=== PATIENT | female | born 1950 | race Caucasian/White ===

== ENCOUNTER 2021-09-30 15:50 | Emergency (ER) | payer MEDICARE ==
[~2021-09-30] VITALS: Ht 160 cm; Wt 100.0 kg
[2021-09-30 16:49] VITALS: BP 168/92
[2021-10-01] MEDS ORDERED: CHLO25TA10 PO (10:58)
[2021-10-01] MEDS ORDERED: CITA40TA17 PO (10:58)
[2021-10-01] MEDS ORDERED: BUSP10TA3 PO (10:58)
[2021-10-01] MEDS ORDERED: POTA10CA44 PO (10:58)
[2021-10-01] MEDS ORDERED: METO-384 PO (10:58)
[2021-10-01] MEDS ORDERED: PIOG30TA71 PO (10:58)
[2021-10-01] MEDS ORDERED: ATOR40TA72 PO (10:58)
[2021-10-02] MEDS ORDERED: DEC4T PO (11:52)
[2021-10-02] MEDS ORDERED: CIPR-202 PO (14:02)
== END 2021-09-30 18:55 | disposition left against medical advice (07) ==
LOC: ER 15:50
DX: U07.1 COVID-19 (principal); E11.9 Type 2 diabetes mellitus without complications; Z86.73 Personal history of transient ischemic attack (TIA), and cerebral infarction without residual deficits; Z88.0 Allergy status to penicillin; Z88.2 Allergy status to sulfonamides
CPT/HCPCS: 99281

== ENCOUNTER 2021-10-03 09:11 | Emergency (ER) | payer MEDICARE ==
[~2021-10-03] VITALS: Ht 160 cm; Wt 99.0 kg
[2021-10-03 09:11] VITALS: BP 170/84
[~2021-10-03 09:11] MED LIST: ATOR40TA72 PO; BUSP10TA3 PO; CIPR-202 PO; CITA40TA17 PO; DEC4T PO; METO-384 PO; PIOG30TA71 PO; POTA10CA44 PO
--- NOTE | 2021-10-03 09:24 | NUR ---
Pt has a strong cough. States that she is weak. Calls out, "Help me."
[2021-10-03] MEDS ORDERED: ondansetron/PF 4mg/2ml inj IV ONE (09:45)
[2021-10-03] MEDS ORDERED: normal saline 1000ML IV soln IVB ONE (09:45)
--- NOTE | 2021-10-03 10:09 | NUR ---
PT IS SCREAMING "DONT LEAVE, HELP ME", EVERY TIME I TRY TO WALK OUT OF THE ROOM. PT WILL NOT ALLOW ME TO TREAST HER SHE CONT TO CLIMB OUT OF BED STATING "I WILL LEAVE IF YOU DONT MOVE ME TO A DIFFERENT BED". i EXPLAINED THIS IS HER ROOM AND IM TRYING TO PROVIDE HER WITH HER MEDICAL TREATMENT. PT CONT TO SAY HELP ME. PT WONT TELL ME WHAT IS WRONG OTHER THAN SAYING "IM SICK".
[2021-10-03] MEDS ORDERED: acetaminophen 325mg tablet PO ONE (10:40)
[2021-10-03] MEDS ORDERED: LORazepam 2 mg/ml vial IV ONE (10:40)
[2021-10-03 10:49] LABS: BASOPHILS % (AUTO) 0.2 % (0-1); EOSINOPHILS % (AUTO) 0 % (0-6); HEMATOCRIT 41.1 % (35.0-45.0); HEMOGLOBIN 13.9 g/dl (12.0-16.0); LYMPHOCYTES # (AUTO) 1.6 X10'3 (1.1-4.8); LYMPHOCYTES % (AUTO) 35.9 % (21-51); MEAN CORPUSCULAR HEMOGLOBIN 28.6 PG (27.0-31.0); MEAN CORPUSCULAR HGB CONC 33.7 g/dL (33.0-36.5); MEAN CORPUSCULAR VOLUME 84.9 FL (78-98); MEAN PLATELET VOLUME 9.4 FL (7.4-10.4); MONOCYTES # (AUTO) 0.8 X10'3 (0-0.9); MONOCYTES % (AUTO) 16.8 % (2-12); NEUTROPHILS # (AUTO) 2.2 X10'3 (1.8-7.7); NEUTROPHILS % (AUTO) 47.1 % (42-75); PLATELET COUNT 180 X10'3 (140-440); RED BLOOD COUNT 4.85 X10'6 (4.20-5.60); RED CELL DISTRIBUTION WIDTH 14.6 % (11.5-14.5); WHITE BLOOD COUNT 4.6 X10'3 (4.5-11.0)
--- NOTE | 2021-10-03 10:58 | NUR ---
[place] ([facility])- [phone]
[2021-10-03 11:02] LABS: ALANINE AMINOTRANSFERASE 29 U/L (12-78); ALBUMIN 3.9 G/DL (3.4-5.0); ALKALINE PHOSPHATASE 57 IU/L (46-116); ANION GAP 12 (8-16); ASPARTATE AMINO TRANSFERASE 23 U/L (10-37); BLOOD UREA NITROGEN 16 MG/DL (7-18); BUN/CREATININE RATIO 16.5 (6.6-38.0); CALCIUM 9.9 MG/DL (8.5-10.1); CHLORIDE 98 MMOL/L (99-107); CREATININE 0.97 MG/DL (0.40-0.90); GLUCOSE 159 MG/DL (70-104); POTASSIUM 3.6 MMOL/L (3.5-5.1); SODIUM 133 MMOL/L (135-145); TOTAL CARBON DIOXIDE 22.6 MMOL/L (24-32); eGFR 56 ML/MIN
[2021-10-05] MEDS ORDERED: ONDA4TAB12 PO ×2 (17:58)
[2021-10-12] MEDS ORDERED: OMEP20CA15 PO (12:36)
[2021-10-12] MEDS ORDERED: CHLO25TA10 PO (12:36)
[2021-10-12] MEDS ORDERED: IBUP-1984 PO (12:37)
== END 2021-10-03 16:43 | disposition home or self-care (01) ==
LOC: ER 09:11
DX: U07.1 COVID-19 (principal); R50.9 Fever, unspecified; F41.9 Anxiety disorder, unspecified; I10 Essential (primary) hypertension; E11.9 Type 2 diabetes mellitus without complications; Z86.73 Personal history of transient ischemic attack (TIA), and cerebral infarction without residual deficits; Z90.710 Acquired absence of both cervix and uterus; Z88.0 Allergy status to penicillin; Z88.2 Allergy status to sulfonamides; Z79.899 Other long term (current) drug therapy; Z79.2 Long term (current) use of antibiotics
CPT/HCPCS: 36415; 71045; 80053; 85025; 93005; 96361; 96374; 96375; 99285; J2060; J2405; J7030

== ENCOUNTER 2021-10-04 07:33 | Emergency (ER) | payer MEDICARE ==
[~2021-10-04] VITALS: Ht 160 cm; Wt 100.0 kg
[2021-10-04 07:35] VITALS: BP 170/78
[2021-10-04] MEDS ORDERED: LORazepam 1 MG tablet PO ONE (08:00)
[2021-10-04] MEDS ORDERED: ondansetron 4mg rapidly disintigrating tab PO ONE (08:00)
[2021-10-04] MEDS ORDERED: acetaminophen 325mg tablet PO ONE (08:00)
[2021-10-05] MEDS ORDERED: ONDA4TAB12 PO (17:58)
== END 2021-10-04 10:22 | disposition home or self-care (01) ==
LOC: ER 07:33
DX: U07.1 COVID-19 (principal); I10 Essential (primary) hypertension; E11.9 Type 2 diabetes mellitus without complications; Z86.73 Personal history of transient ischemic attack (TIA), and cerebral infarction without residual deficits; Z79.2 Long term (current) use of antibiotics; Z79.899 Other long term (current) drug therapy; Z90.710 Acquired absence of both cervix and uterus; Z88.0 Allergy status to penicillin; Z88.2 Allergy status to sulfonamides
CPT/HCPCS: 99284

== ENCOUNTER 2021-10-05 16:47 | Emergency (ER) | payer MEDICARE ==
[~2021-10-05] VITALS: Ht 162.6 cm; Wt 100.0 kg
[2021-10-05 17:04] VITALS: BP 144/75
--- NOTE | 2021-10-05 17:56 | NUR ---
spoke with Kamran-son states, "she has high anxiety and needs to be treated for it. I dont think she takes anything for anxiety." informed Kamran needs to f/u with her primary doctor.
[2021-10-05] MEDS ORDERED: ONDA4TAB12 PO (17:58)
== END 2021-10-05 18:14 | disposition home or self-care (01) ==
LOC: ER 16:48
DX: U07.1 COVID-19 (principal); R05.9 Cough, unspecified; I10 Essential (primary) hypertension; E11.9 Type 2 diabetes mellitus without complications; Z86.73 Personal history of transient ischemic attack (TIA), and cerebral infarction without residual deficits; Z90.710 Acquired absence of both cervix and uterus; Z88.0 Allergy status to penicillin; Z88.2 Allergy status to sulfonamides; Z79.2 Long term (current) use of antibiotics; Z79.899 Other long term (current) drug therapy
CPT/HCPCS: 99283

== ENCOUNTER 2021-10-06 07:41 | Emergency (ER) | payer MEDICARE ==
[~2021-10-06] VITALS: Ht 160 cm; Wt 90.9 kg
[~2021-10-06 07:41] MED LIST changes: +ONDA4TAB12 PO
[2021-10-06 07:54] VITALS: BP 163/88
--- NOTE | 2021-10-06 08:31 | NUR ---
PT SEEN OUT WALKING AROUND IN THE RAP AREA AND INTO THE PARKING LOT. APPROACHED PT AND HAD HER RETURN TO HER CHAIR AND STATES "MY CHEST HURTS. I'M SCARED." ELENITA WILLIAMSON MADE AWARE AND EKG ORDERED. PT THEN BANGING ON THE AMBULANCE DOORS YELLING "HELP. I'M SCARED." WENT BACK OUT AND REDIRECTED PT BACK TO CHAIR. PT DIFFICULT TO REDIRECT AND IS NOT COMPLIANT WITH STAYING IN HER DESIGNATED CHAIR SHE IS COVID POSITIVE.
== END 2021-10-06 09:10 | disposition home or self-care (01) ==
LOC: ER 07:41
DX: F41.9 Anxiety disorder, unspecified (principal); I10 Essential (primary) hypertension; E11.9 Type 2 diabetes mellitus without complications; Z90.710 Acquired absence of both cervix and uterus; Z86.73 Personal history of transient ischemic attack (TIA), and cerebral infarction without residual deficits; Z88.0 Allergy status to penicillin; Z88.2 Allergy status to sulfonamides; Z79.2 Long term (current) use of antibiotics; Z79.899 Other long term (current) drug therapy; Z86.16 Personal history of COVID-19
CPT/HCPCS: 93005; 99283

== ENCOUNTER 2021-10-08 01:02 | Emergency (ER) | payer MEDICARE ==
[~2021-10-08] VITALS: Ht 160 cm; Wt 100.0 kg
[2021-10-08 01:54] LABS: BASOPHILS % (AUTO) 0.2 % (0-1); EOSINOPHILS % (AUTO) 0.2 % (0-6); HEMOGLOBIN 13.7 g/dl (12.0-16.0); LYMPHOCYTES # (AUTO) 1.2 X10'3 (1.1-4.8); LYMPHOCYTES % (AUTO) 28.9 % (21-51); MEAN CORPUSCULAR HEMOGLOBIN 28.8 PG (27.0-31.0); MEAN CORPUSCULAR HGB CONC 35.2 g/dL (33.0-36.5); MEAN CORPUSCULAR VOLUME 81.9 FL (78-98); MEAN PLATELET VOLUME 8.5 FL (7.4-10.4); MONOCYTES # (AUTO) 1.3 X10'3 (0-0.9); NEUTROPHILS # (AUTO) 1.8 X10'3 (1.8-7.7); NEUTROPHILS % (AUTO) 41.7 % (42-75); PLATELET COUNT 208 X10'3 (140-440); RED BLOOD COUNT 4.76 X10'6 (4.20-5.60); RED CELL DISTRIBUTION WIDTH 14.3 % (11.5-14.5); WHITE BLOOD COUNT 4.3 X10'3 (4.5-11.0)
[2021-10-08 02:19] LABS: ALANINE AMINOTRANSFERASE 39 U/L (12-78); ALBUMIN 3.8 G/DL (3.4-5.0); ALKALINE PHOSPHATASE 72 IU/L (46-116); ANION GAP 11 (8-16); ASPARTATE AMINO TRANSFERASE 27 U/L (10-37); BILIRUBIN,TOTAL 1.1 MG/DL (0.1-1.0); BLOOD UREA NITROGEN 11 MG/DL (7-18); BUN/CREATININE RATIO 14.7 (6.6-38.0); CALCIUM 9.5 MG/DL (8.5-10.1); CHLORIDE 91 MMOL/L (99-107); CREATININE 0.75 MG/DL (0.40-0.90); GLUCOSE 129 MG/DL (70-104); SODIUM 129 MMOL/L (135-145); TOTAL PROTEIN 7.8 G/DL (6.4-8.2); eGFR 76 ML/MIN
[2021-10-08 02:31] LABS: POTASSIUM 2.7 MMOL/L (3.5-5.1)
[2021-10-08] MEDS ORDERED: potassium Cl 20 mEq SR tablet PO STA (03:12)
[2021-10-08] MEDS ORDERED: LORazepam 1 MG tablet PO ONE (03:15)
[2021-10-08 03:18] LABS: D-DIMER 0.28 MG/L FEU (0-0.50)
[2021-10-08 04:20] LABS: PLATELET ESTIMATE NORMAL; TOTAL CELLS COUNTED 100
[2021-10-08] MEDS ORDERED: sulfamethoxazole/trimethoprim DS (800/160mg) tablet PO STA (04:54)
[2021-10-08] MEDS ORDERED: SULF1TAB49 PO (04:55)
--- NOTE | 2021-10-08 05:09 | NUR ---
called cab, 45min eta
[2021-10-08 05:50] VITALS: BP 112/78
[2021-10-12] MEDS ORDERED: CHLO25TA10 PO (12:36)
[2021-10-12] MEDS ORDERED: OMEP20CA15 PO (12:36)
[2021-10-12] MEDS ORDERED: IBUP-1984 PO (12:37)
[2021-10-15] MEDS ORDERED: DOXY100C2 PO (10:47)
== END 2021-10-08 06:25 | disposition home or self-care (01) ==
LOC: ER 01:03
DX: U07.1 COVID-19 (principal); F41.9 Anxiety disorder, unspecified; I10 Essential (primary) hypertension; E11.9 Type 2 diabetes mellitus without complications; Z86.72 Personal history of thrombophlebitis; Z88.0 Allergy status to penicillin; Z88.2 Allergy status to sulfonamides; Z79.2 Long term (current) use of antibiotics; Z79.899 Other long term (current) drug therapy; Z90.710 Acquired absence of both cervix and uterus
CPT/HCPCS: 36415; 71045; 80053; 83880; 84484; 85007; 85025; 85379; 93005; 99285

== ENCOUNTER 2021-11-28 02:10 | Emergency (ER) | payer MEDICARE ==
[~2021-11-28] VITALS: Ht 160 cm; Wt 102.3 kg
[~2021-11-28 02:10] MED LIST changes: +ARIP5TAB60 PO; +ATOR20TA66 PO; -ATOR40TA72 PO; +BUSP10TA10 PO; -BUSP10TA3 PO; -CIPR-202 PO; -CITA40TA17 PO; +CITA40TA22 PO; -DEC4T PO; +DOCU100C40 PO; +DONE5TAB7 PO; +IBUP-1984 PO; -ONDA4TAB12 PO; +PANT40TA54 PO
[2021-11-28] MEDS ORDERED: ondansetron/PF 4mg/2ml inj IV ONE (03:55)
[2021-11-28] MEDS ORDERED: morphine 4 MG/ML inj SYRINge IV ONE (03:55)
[2021-11-28 04:29] LABS: BASOPHILS % (AUTO) 1.1 % (0-1); EOSINOPHILS # (AUTO) 0.1 X10'3 (0-0.9); EOSINOPHILS % (AUTO) 1.3 % (0-6); HEMATOCRIT 34.6 % (35.0-45.0); HEMOGLOBIN 11.5 g/dl (12.0-16.0); LYMPHOCYTES # (AUTO) 1.7 X10'3 (1.1-4.8); LYMPHOCYTES % (AUTO) 43.6 % (21-51); MEAN CORPUSCULAR HEMOGLOBIN 28.5 PG (27.0-31.0); MEAN CORPUSCULAR HGB CONC 33.1 g/dL (33.0-36.5); MEAN PLATELET VOLUME 10.2 FL (7.4-10.4); MONOCYTES # (AUTO) 0.5 X10'3 (0-0.9); MONOCYTES % (AUTO) 12.8 % (2-12); NEUTROPHILS # (AUTO) 1.6 X10'3 (1.8-7.7); NEUTROPHILS % (AUTO) 41.2 % (42-75); PLATELET COUNT 172 X10'3 (140-440); RED BLOOD COUNT 4.02 X10'6 (4.20-5.60); RED CELL DISTRIBUTION WIDTH 15.5 % (11.5-14.5); WHITE BLOOD COUNT 3.8 X10'3 (4.5-11.0)
[2021-11-28] MEDS ORDERED: acetaminophen 325mg tablet PO ONE (05:05)
[2021-11-28 05:15] LABS: ALANINE AMINOTRANSFERASE 28 U/L (12-78); ALBUMIN 3.6 G/DL (3.4-5.0); ALKALINE PHOSPHATASE 53 IU/L (46-116); ANION GAP 14 (8-16); ASPARTATE AMINO TRANSFERASE 15 U/L (10-37); BILIRUBIN,TOTAL 0.5 MG/DL (0.1-1.0); BLOOD UREA NITROGEN 9 MG/DL (7-18); BUN/CREATININE RATIO 10.3 (6.6-38.0); CALCIUM 10.3 MG/DL (8.5-10.1); CHLORIDE 100 MMOL/L (99-107); CREATININE 0.87 MG/DL (0.40-0.90); GLUCOSE 135 MG/DL (70-104); POTASSIUM 3.3 MMOL/L (3.5-5.1); SODIUM 141 MMOL/L (135-145); TOTAL CARBON DIOXIDE 27.1 MMOL/L (24-32); TOTAL PROTEIN 7.1 G/DL (6.4-8.2); eGFR 64 ML/MIN
[2021-11-28] MEDS ORDERED: sucralfate 1 gm tablet PO ONE (05:20)
[2021-11-28] MEDS ORDERED: GABA300C PO (05:48)
[2021-11-28 06:08] VITALS: BP 142/72
== END 2021-11-28 06:11 | disposition home or self-care (01) ==
LOC: ER 02:10
DX: M25.552 Pain in left hip (principal); M54.32 Sciatica, left side; R42 Dizziness and giddiness; E78.00 Pure hypercholesterolemia, unspecified; I10 Essential (primary) hypertension; E11.9 Type 2 diabetes mellitus without complications; Z86.73 Personal history of transient ischemic attack (TIA), and cerebral infarction without residual deficits; Z90.710 Acquired absence of both cervix and uterus; Z88.0 Allergy status to penicillin; Z88.2 Allergy status to sulfonamides; Z79.899 Other long term (current) drug therapy
CPT/HCPCS: 36415; 71045; 73502; 80053; 85025; 93005; 96374; 96375; 99285; J2270; J2405

== ENCOUNTER 2021-11-30 13:40 | Emergency (ER) | payer MEDICARE ==
[~2021-11-30] VITALS: Ht 160 cm; Wt 102.3 kg
[~2021-11-30 13:40] MED LIST changes: +GABA300C PO
[2021-11-30 13:53] VITALS: BP 185/83
== END 2021-11-30 19:59 | disposition left against medical advice (07) ==
LOC: ER 13:40
DX: K62.5 Hemorrhage of anus and rectum (principal); Z53.21 Procedure and treatment not carried out due to patient leaving prior to being seen by health care provider

== ENCOUNTER 2021-12-01 04:41 | Emergency (ER) | payer MEDICARE ==
[~2021-12-01] VITALS: Ht 157.5 cm; Wt 102.3 kg
[2021-12-01] MEDS ORDERED: diazepam 5mg tablet PO ONE (05:10)
[2021-12-01 05:32] LABS: BASOPHILS % (AUTO) 0.4 % (0-1); EOSINOPHILS # (AUTO) 0.1 X10'3 (0-0.9); EOSINOPHILS % (AUTO) 1.7 % (0-6); HEMATOCRIT 37.3 % (35.0-45.0); HEMOGLOBIN 12.5 g/dl (12.0-16.0); LYMPHOCYTES # (AUTO) 1.5 X10'3 (1.1-4.8); LYMPHOCYTES % (AUTO) 35.3 % (21-51); MEAN CORPUSCULAR HEMOGLOBIN 28.8 PG (27.0-31.0); MEAN CORPUSCULAR HGB CONC 33.6 g/dL (33.0-36.5); MEAN CORPUSCULAR VOLUME 85.7 FL (78-98); MEAN PLATELET VOLUME 10.2 FL (7.4-10.4); MONOCYTES # (AUTO) 0.5 X10'3 (0-0.9); MONOCYTES % (AUTO) 12.6 % (2-12); NEUTROPHILS # (AUTO) 2.1 X10'3 (1.8-7.7); PLATELET COUNT 218 X10'3 (140-440); RED BLOOD COUNT 4.35 X10'6 (4.20-5.60); RED CELL DISTRIBUTION WIDTH 15.7 % (11.5-14.5); WHITE BLOOD COUNT 4.3 X10'3 (4.5-11.0)
[2021-12-01 05:47] LABS: ALANINE AMINOTRANSFERASE 43 U/L (12-78); ALBUMIN 3.9 G/DL (3.4-5.0); ALKALINE PHOSPHATASE 67 IU/L (46-116); ANION GAP 13 (8-16); BILIRUBIN,TOTAL 0.7 MG/DL (0.1-1.0); BLOOD UREA NITROGEN 7 MG/DL (7-18); BUN/CREATININE RATIO 9.5 (6.6-38.0); CALCIUM 10.5 MG/DL (8.5-10.1); CHLORIDE 99 MMOL/L (99-107); CREATININE 0.74 MG/DL (0.40-0.90); GLUCOSE 136 MG/DL (70-104); SODIUM 139 MMOL/L (135-145); TOTAL CARBON DIOXIDE 26.9 MMOL/L (24-32); TOTAL PROTEIN 7.8 G/DL (6.4-8.2); eGFR 77 ML/MIN
[2021-12-01 05:50] LABS: ASPARTATE AMINO TRANSFERASE 45 U/L (10-37)
[2021-12-01] MEDS ORDERED: fentaNYL/PF 50MCG/1 ML 2ML syringe IV ONE (06:45)
--- NOTE | 2021-12-01 07:40 | NUR ---
MRI screen form filled out and faxed to MRI.
[2021-12-01 07:57] LABS: CLARITY,URINE CLEAR (Clear); COLOR,URINE YELLOW (Yellow); GLUCOSE, URINE NEGATIVE (Neg); KETONES,URINE NEGATIVE (Neg); LEUKOCYTE ESTERASE ,URINE NEGATIVE (Neg); NITRITES, URINE NEGATIVE (Neg); OCCULT BLOOD,URINE NEGATIVE (Neg); PROTEIN,URINE NEGATIVE (Neg); UROBILINOGEN,URINE 0.2 E.U/dL (0.2-1.0)
[2021-12-01 08:15] LABS: UA COLLECTION TYPE OTHER
--- NOTE | 2021-12-01 08:30 | NUR ---
Sent page to MRI, informed pt paperwork faxed and awaiting status.
--- NOTE | 2021-12-01 09:26 | NUR ---
Pt reports she feels like her blood surgar is low, glucose taken with result 119. Received VO may give pt something to eat and drink from Dr. Damon and pt now eating some yogurt, string cheese, jello and juice.
[2021-12-01] MEDS ORDERED: cloNIDine 0.1 mg tablet PO ONE (09:55)
--- NOTE | 2021-12-01 12:00 | NUR ---
Pt in hospital gown and being taken to MRI.
[2021-12-01 13:50] VITALS: BP 163/102
== END 2021-12-01 14:28 | disposition home or self-care (01) ==
LOC: ER 04:41
DX: M54.42 Lumbago with sciatica, left side (principal); E78.00 Pure hypercholesterolemia, unspecified; I10 Essential (primary) hypertension; E11.9 Type 2 diabetes mellitus without complications; F41.9 Anxiety disorder, unspecified; F32.A Depression, unspecified; Z86.73 Personal history of transient ischemic attack (TIA), and cerebral infarction without residual deficits; Z90.710 Acquired absence of both cervix and uterus; Z88.0 Allergy status to penicillin; Z88.2 Allergy status to sulfonamides; Z79.899 Other long term (current) drug therapy
CPT/HCPCS: 36415; 72146; 72148; 80053; 81003; 82948; 85025; 96374; 99285; J3010

== ENCOUNTER 2021-12-02 05:03 | Emergency (ER) | payer MEDICARE ==
[~2021-12-02] VITALS: Ht 157.5 cm; Wt 102.3 kg
[2021-12-02 05:05] VITALS: BP 127/80
[2021-12-02] MEDS: triamcinolone acetonide 40mg/ml inj IM ONE (05:19)
[2021-12-02] MEDS: HYDROcodone/acetaminophen 10/325mg tab PO ONE (05:38)
== END 2021-12-02 05:41 | disposition home or self-care (01) ==
LOC: ER 05:04
DX: M54.42 Lumbago with sciatica, left side (principal); E78.00 Pure hypercholesterolemia, unspecified; I10 Essential (primary) hypertension; E11.9 Type 2 diabetes mellitus without complications; F41.9 Anxiety disorder, unspecified; F32.A Depression, unspecified; Z86.73 Personal history of transient ischemic attack (TIA), and cerebral infarction without residual deficits; Z90.710 Acquired absence of both cervix and uterus; Z88.0 Allergy status to penicillin; Z88.2 Allergy status to sulfonamides; Z79.899 Other long term (current) drug therapy
CPT/HCPCS: 96372; 99283; J3301

== ENCOUNTER 2021-12-10 09:20 | Inpatient (IN) | payer MEDICARE ==
[~2021-12-10] VITALS: Ht 162.6 cm; Wt 93.5 kg
[2021-12-10 11:07] LABS: BASOPHILS % (AUTO) 0.3 % (0-1); EOSINOPHILS % (AUTO) 0.7 % (0-6); HEMATOCRIT 39.2 % (35.0-45.0); HEMOGLOBIN 12.8 g/dl (12.0-16.0); LYMPHOCYTES % (AUTO) 26.9 % (21-51); MEAN CORPUSCULAR HEMOGLOBIN 28.2 PG (27.0-31.0); MEAN CORPUSCULAR HGB CONC 32.7 g/dL (33.0-36.5); MEAN CORPUSCULAR VOLUME 86.3 FL (78-98); MEAN PLATELET VOLUME 9.4 FL (7.4-10.4); MONOCYTES # (AUTO) 0.4 X10'3 (0-0.9); NEUTROPHILS # (AUTO) 2.2 X10'3 (1.8-7.7); NEUTROPHILS % (AUTO) 61.1 % (42-75); PLATELET COUNT 211 X10'3 (140-440); RED BLOOD COUNT 4.54 X10'6 (4.20-5.60); RED CELL DISTRIBUTION WIDTH 15.3 % (11.5-14.5); WHITE BLOOD COUNT 3.6 X10'3 (4.5-11.0)
[2021-12-10 11:22] LABS: ALANINE AMINOTRANSFERASE 26 U/L (12-78); ALKALINE PHOSPHATASE 69 IU/L (46-116); ANION GAP 12 (8-16); ASPARTATE AMINO TRANSFERASE 15 U/L (10-37); BILIRUBIN,TOTAL 0.3 MG/DL (0.1-1.0); BLOOD UREA NITROGEN 11 MG/DL (7-18); BUN/CREATININE RATIO 14.1 (6.6-38.0); CALCIUM 10.6 MG/DL (8.5-10.1); CHLORIDE 102 MMOL/L (99-107); CREATININE 0.78 MG/DL (0.40-0.90); GLUCOSE 173 MG/DL (70-104); POTASSIUM 3.5 MMOL/L (3.5-5.1); SODIUM 141 MMOL/L (135-145); TOTAL CARBON DIOXIDE 27.4 MMOL/L (24-32); eGFR 73 ML/MIN
--- NOTE | 2021-12-10 11:38 | NUR ---
PT C/O SHAKINESS AND CONCERENED ABOUT LOW BLD GLUCOSE .CHECKED THE B.S ITS 147.
[2021-12-10 11:50] LABS: CLARITY,URINE CLOUDY (Clear); COLOR,URINE YELLOW (Yellow); GLUCOSE, URINE NEGATIVE (Neg); KETONES,URINE NEGATIVE (Neg); LEUKOCYTE ESTERASE ,URINE SMALL (Neg); NITRITES, URINE POSITIVE (Neg); OCCULT BLOOD,URINE NEGATIVE (Neg); PH,URINE 6.5 (4.8-8.0); PROTEIN,URINE 30 mg/dl (Neg); UROBILINOGEN,URINE 0.2 E.U/dL (0.2-1.0)
[2021-12-10 11:55] LABS: UA COLLECTION TYPE CLN CATCH MIDSTREAM
[2021-12-10 11:57] LABS: HYALINE CASTS 0-3 /LPF (NEGATIVE); SQUAMOUS EPITHELIAL CELL,UR MANY /LPF (FEW)
[2021-12-10 11:58] LABS: BACTERIA,URINE 4+ /HPF (Neg); RBC,URINE 0-2 /HPF (0-2); WBC,URINE 50-100 /HPF (0-4)
[2021-12-10] MEDS ORDERED: NITR100C6 PO (12:47)
[2021-12-10 12:58] VITALS: BP 212/111
== END 2021-12-10 13:06 | DRG 881 ==
LOC: ER 09:20 → ED HOLD 10:00
PROVIDERS: ADMIT Psychiatry & Neurology Psychiatry; ATTEND Psychiatry & Neurology Psychiatry
DX: F32.A Depression, unspecified (principal); U07.1 COVID-19; N30.00 Acute cystitis without hematuria; M54.32 Sciatica, left side; E11.9 Type 2 diabetes mellitus without complications; E78.00 Pure hypercholesterolemia, unspecified; F41.9 Anxiety disorder, unspecified; F03.90 Unspecified dementia, unspecified severity, without behavioral disturbance, psychotic disturbance, mood disturbance, and anxiety; I10 Essential (primary) hypertension; Z86.73 Personal history of transient ischemic attack (TIA), and cerebral infarction without residual deficits; Z90.710 Acquired absence of both cervix and uterus; Z88.0 Allergy status to penicillin; Z88.2 Allergy status to sulfonamides
CPT/HCPCS: 36415; 80053; 81001; 82948; 85025; 87635; 99285; C9803; G0378

== ENCOUNTER 2023-05-05 09:25 | Inpatient (IN) | payer MEDICARE, MEDICAID ==
[~2023-05-05] VITALS: Ht 160 cm; Wt 105.0 kg
[~2023-05-05 09:25] MED LIST changes: +AMLO5TAB16 PO; -ARIP5TAB60 PO; -ATOR20TA66 PO; +ATOR40TA72 PO; -BUSP10TA10 PO; +BUSP15TA3 PO; +CITA40TA17 PO; -CITA40TA22 PO; -DOCU100C40 PO; +DONE-46 PO; -DONE5TAB7 PO; +GABA-530 PO; -GABA300C PO; +LOSA25TA41 PO; -METO-384 PO; +MOXI3DRO12 EACHEYE; +PIOG15TA8 PO; -PIOG30TA71 PO; +POTA-188 PO; -POTA10CA44 PO
[2023-05-05 10:33] LABS: BASOPHILS % (AUTO) 0.2 % (0-1); EOSINOPHILS % (AUTO) 0.3 % (0-6); HEMATOCRIT 40.6 % (35.0-45.0); HEMOGLOBIN 13.6 g/dl (12.0-16.0); LYMPHOCYTES # (AUTO) 1.2 X10'3 (1.1-4.8); LYMPHOCYTES % (AUTO) 26.8 % (21-51); MEAN CORPUSCULAR HEMOGLOBIN 28.9 PG (27.0-31.0); MEAN CORPUSCULAR HGB CONC 33.4 g/dL (33.0-36.5); MEAN CORPUSCULAR VOLUME 86.6 FL (78-98); MEAN PLATELET VOLUME 9.3 FL (7.4-10.4); MONOCYTES # (AUTO) 0.6 X10'3 (0-0.9); NEUTROPHILS # (AUTO) 2.8 X10'3 (1.8-7.7); NEUTROPHILS % (AUTO) 59.7 % (42-75); PLATELET COUNT 180 X10'3 (140-440); RED BLOOD COUNT 4.69 X10'6 (4.20-5.60); WHITE BLOOD COUNT 4.6 X10'3 (4.5-11.0)
[2023-05-05 10:46] LABS: ALANINE AMINOTRANSFERASE 15 U/L (12-78); ALBUMIN 3.8 G/DL (3.4-5.0); ALKALINE PHOSPHATASE 78 IU/L (46-116); ANION GAP 7 (8-16); ASPARTATE AMINO TRANSFERASE 17 U/L (10-37); BILIRUBIN,TOTAL 0.9 MG/DL (0.1-1.0); BLOOD UREA NITROGEN 9 MG/DL (7-18); BUN/CREATININE RATIO 9.5 (10.0-20.0); CALCIUM 10.3 MG/DL (8.5-10.1); CHLORIDE 99 MMOL/L (99-107); CREATININE 0.95 MG/DL (0.40-0.90); ETHANOL < 10 MG/DL (<10); GLUCOSE 178 MG/DL (70-104); SODIUM 138 MMOL/L (135-145); TOTAL CARBON DIOXIDE 31.9 MMOL/L (24-32); TOTAL PROTEIN 7.8 G/DL (6.4-8.2); eCRCL 45 ML/MIN; eGFR 58 ML/MIN
[2023-05-05 10:53] LABS: URINE AMPHETAMINE SCREEN NEGATIVE (Neg); URINE BARBITUATE SCREEN NEGATIVE (Neg); URINE BENZODIAZEPINES SCREEN NEGATIVE (Neg); URINE CANNABINOID SCREEN NEGATIVE (Neg); URINE COCAINE SCREEN NEGATIVE (Neg); URINE METHADONE SCREEN NEGATIVE (Neg); URINE OPIATE SCREEN NEGATIVE (Neg); URINE PHENCYCLIDINE SCREEN NEGATIVE (Neg)
[2023-05-05] MEDS ORDERED: potassium Cl 20 mEq SR tablet PO ONE (11:00)
[2023-05-05] MEDS ORDERED: magnesium oxide 400mg tablet PO ONE (11:00)
[2023-05-05 11:47] LABS: MAGNESIUM 1.4 MG/DL (1.5-2.4)
[2023-05-05] MEDS ORDERED: magnesium 2GM in 50ml NS 50 ML IV ONE (12:10)
[2023-05-05 14:41] LABS: BILIRUBIN,URINE NEGATIVE (Neg); CLARITY,URINE SLIGHTLY CLOUDY (Clear); COLOR,URINE YELLOW (Yellow); GLUCOSE, URINE NEGATIVE (Neg); KETONES,URINE NEGATIVE (Neg); LEUKOCYTE ESTERASE ,URINE LARGE (Neg); NITRITES, URINE NEGATIVE (Neg); OCCULT BLOOD,URINE TRACE-INTACT (Neg); PH,URINE 6.5 (4.8-8.0); PROTEIN,URINE 100 mg/dl (Neg); UROBILINOGEN,URINE 0.2 E.U/dL (0.2-1.0)
[2023-05-05 14:46] LABS: UA COLLECTION TYPE VOIDED
[2023-05-05 14:50] LABS: BACTERIA,URINE 4+ /HPF (Neg); RBC,URINE 0-2 /HPF (0-2); WBC,URINE TNTC /HPF (0-4)
[2023-05-05 14:51] LABS: MUCUS STRANDS FEW /LPF (Neg); SQUAMOUS EPITHELIAL CELL,UR MODERATE /LPF (FEW); TRANSITIONAL EPI CELLS,URINE FEW /HPF
[2023-05-05] MEDS ORDERED: CefTRIAXone 2gm/D5W 50ml BAG 50 ML IV ONE (15:00)
[2023-05-05] MEDS ORDERED: FOSFOMYCIN TROMETHAMINE 3 GM PACKET PO ONE (15:20)
[2023-05-05 16:18] VITALS: BP 218/107; PULSE 101; RESP 20; TEMP 97.9; O2SAT 98
[2023-05-05 17:04] VITALS: RESP 20; O2SAT 98
[2023-05-05] MEDS ORDERED: cloNIDine 0.1 mg tablet PO ONE (17:40)
--- NOTE | 2023-05-05 17:53 | NUR ---
ADMIT NOTE Pt admitted to [facility] at 1530 from ED fast track on voluntary status. Earlier today, pt was seen in outpatient and sent to the ED for medical clearance and voluntary admission for Grave Disability d/t depression and anxiety. Reports she has not been eating at home. Pt treated for UTI. BP 218/107 on admission; gave clonidine 0.[address] Watson. MRI of the head completed in ED. Pt tearful and anxious with admission process.
[2023-05-05 19:00] VITALS: RESP 16; O2SAT 97
[2023-05-05 20:00] VITALS: BP 116/66; PULSE 84; RESP 16; TEMP 96; O2SAT 97
[2023-05-05] MEDS: busPIRone 15mg tablet PO SCH (20:10)
[2023-05-05] MEDS ORDERED: donepezil 5mg tablet PO SCH (21:00)
[2023-05-05] MEDS ORDERED: potassium Cl 20 mEq SR tablet PO PRN (22:45)
[2023-05-05] MEDS ORDERED: magnesium Cl slow-release 64mg tablet PO PRN (22:45)
[2023-05-05] MEDS ORDERED: magnesium 4gm in 100ml NS 100 ML IV PRN (22:45)
[2023-05-05] MEDS ORDERED: magnesium 2GM in 50ml NS 50 ML IV PRN (22:45)
[2023-05-05] MEDS ORDERED: potassium Cl 40MEQ/1/2NS 520ml 520 ML IV PRN (22:45)
--- NOTE | 2023-05-06 03:58 | NUR ---
Nursing Progress Note: Problem: Pt admitted to [facility] at 1530 from ED fast track on voluntary status. Earlier today, pt. was seen in outpatient and sent to the ED for medical clearance and voluntary admission for Grave Disability d/t depression, anxiety and memory issues. Reports she has not been eating at home. Med hx: CVA/TIA/Stroke, Dementia, High Cholesterol, Hypertension, Diabetes, Anxiety, Depression. Interventions: Monitor patient behavior; [place] patient to person, place and time; Reinforce reality; Q15 minutes checks; provide scheduled and as needed medications. Response: Upon arrival to department noted patient putting her dinner away. Introduced self and said hello. Patient greeted nurse with a smile. Noted to be well-groomed and wearing clean green scrubs. Appeared to be in a good mood and smiling. Later saw patient in room looking out the window with a sad affect and when asked how she was she became tearful and expressed having anxiety and feeling scared being so far away from the nurses station and the sounds of patients walking down the carter were like ,nails on a chalkboard. I miss my family. My granddaughter and great granddaughter live with me and she gives me a hug every night. She probably wonders where I am. Reassured patient that she was safe and help her feel better. Offered a hug and prayer in which she received and was effective in calming her down. Denies SI, HI, AH and VH. Admits to having anxiety and fear about being in the facility. Reports that she doesnt prioritize caring for herself at home and puts everyone else before herself. After the conversation and HS meds patient reports she feels better. Noted K+ lab drawn on admission was low. Replacement orders per protocol placed and will be followed. UTI & HTN noted on admission. Dayshift gave one time antibiotic and this shift noted VS were WNL. Will communicate with dayshift for any further antibiotics needed. Patient fell asleep shortly after meds administered. No need for PRNs this shift. Will continue to monitor. Plan: TBD
[2023-05-06] MEDS: losartan 50mg tablet PO SCH (07:11)
[2023-05-06 07:32] VITALS: RESP 20; O2SAT 98
[2023-05-06] MEDS: citalopram 20mg tablet PO SCH (07:38)
[2023-05-06] MEDS: pioglitazone 15mg tablet PO SCH (07:38)
[2023-05-06] MEDS: busPIRone 15mg tablet PO SCH ×2 (07:38→20:28)
[2023-05-06] MEDS: atorvastatin 20mg tablet PO SCH (07:39)
[2023-05-06 08:00] VITALS: BP 175/92; PULSE 76; RESP 16; TEMP 97.2; O2SAT 98
[2023-05-06] MEDS: K and/or MAG REPLACEMENT MC SCH ×2 (08:00→19:59)
[2023-05-06 08:53] LABS: HEMOGLOBIN A1C 7.6 % (4.5-6.2)
[2023-05-06 09:25] LABS: CHOL/HDL RATIO 3.3 (0.00-4.99); CHOLESTEROL 152 MG/DL (0-200); HDL CHOLESTEROL 46 MG/DL (35-60); LDL CHOLESTEROL 80 MG/DL (50-100); POTASSIUM 3.1 MMOL/L (3.5-5.1); TRIGLYCERIDES 128 MG/DL (20-135)
[2023-05-06 09:41] LABS: MAGNESIUM 1.8 MG/DL (1.5-2.4)
[2023-05-06] MEDS: cloNIDine 0.1 mg tablet PO PRN (10:02)
[2023-05-06] MEDS: potassium Cl 20 mEq SR tablet PO PRN ×2 (10:05→20:29)
[2023-05-06] MEDS ORDERED: LORazepam 1 MG tablet PO ONE (17:05)
--- NOTE | 2023-05-06 17:32 | NUR ---
Nursing Progress Note: Problem: Pt admitted to [facility] at 1530 from ED fast track on voluntary status. Earlier today, pt. was seen in outpatient and sent to the ED for medical clearance and voluntary admission for Grave Disability d/t depression, anxiety and memory issues. Reports she has not been eating at home. Med hx: CVA/TIA/Stroke, Dementia, High Cholesterol, Hypertension, Diabetes, Anxiety, Depression. Interventions: Monitor patient behavior; [place] patient to person, place and time; Reinforce reality; Q15 minutes checks; provide scheduled and as needed medications. Response: Patient sleeping at shift change. She woke for vitals. initail B/P was 175/92. Order received for Clonidine 0.1mg. An hour later her B/P was 138/90. Attempted 1:1, but all patient would do is weep, "I miss my family, I want to go home." This has gone on all day. Labs show her A1C at 7.6. Oder received for AC/HS blood glucose checks. Potassium was 3.1 and replaced with 20 MeQ, then later after her MD saw her another 20 MeQ given. Patient is poor historian, her short-term memory is very short. She seems to repeat questions after 5 minutes. Patient reports being fearful, but xcan not explain what it is she's scared of. She was compliant with all meds. Plan: MELONIE
[2023-05-06] MEDS: potassium Cl 20 mEq SR tablet PO SCH (17:40)
[2023-05-06 19:00] VITALS: RESP 14; O2SAT 95
[2023-05-06 19:50] VITALS: BP 104/59; PULSE 77; RESP 14; TEMP 97.5; O2SAT 95
[2023-05-06] MEDS: ciprofloxacin 250mg tablet PO SCH (20:29)
--- NOTE | 2023-05-06 21:40 | NUR ---
Called hospitalist re: elevated blood glucose this evening x 2 over 160. No new orders received at this time. Will continue to monitor and perform blood glucose checks.
--- NOTE | 2023-05-07 03:35 | NUR ---
Nursing Progress Note: Problem: Pt admitted to [facility] at 1530 from ED fast track on voluntary status. Earlier today, pt. was seen in outpatient and sent to the ED for medical clearance and voluntary admission for Grave Disability d/t depression, anxiety and memory issues. Reports she has not been eating at home. Med hx: CVA/TIA/Stroke, Dementia, High Cholesterol, Hypertension, Diabetes, Anxiety, Depression. Interventions: Monitor patient behavior; [place] patient to person, place and time; Reinforce reality; Q15 minutes checks; provide scheduled and as needed medications. Response: Upon turn of shift noted patient sitting up on side of bed with sad affect. Wearing clean green scrubs with unbrushed hair. Sat down to speak with her. Patient expresses that she wants to go home, do you know when I can leave? Referred her to speak to the doctor in the morning. Reassured her that she was safe and our goal is to make her feel better. Notified noc hospitalist of day hospitalist note re: abx orders for UTI. Received orders for Cipro 250 mg po x 5 days. Gave initial dose this shift. Explained to patient importance of taking her abx. Patient agreed and was compliant with HS meds including antibiotics and PRN K+ med, today's lab result was 3.1 Continue replacement protocol orders and administered 20 mEq K+. Potassium lab will be rechecked today per orders. Denies MH s/sx. Notable anxiety managed with meds and nonmedicinal measures. ACHS blood glucose 237 this shift. Receiving Actos po daily. Notified hospitalist. No new orders at this time. Slept well this shift. Will continue to monitor. Plan: TBD
[2023-05-07 07:00] VITALS: RESP 20; O2SAT 98
[2023-05-07 07:30] LABS: ANION GAP 7 (8-16); CALCIUM 10.2 MG/DL (8.5-10.1); CHLORIDE 102 MMOL/L (99-107); GLUCOSE 159 MG/DL (70-104); POTASSIUM 4.4 MMOL/L (3.5-5.1); SODIUM 139 MMOL/L (135-145); TOTAL CARBON DIOXIDE 29.8 MMOL/L (24-32); eCRCL 52 ML/MIN; eGFR 70 ML/MIN
[2023-05-07 07:43] LABS: ALANINE AMINOTRANSFERASE 18 U/L (12-78); ALBUMIN 3.2 G/DL (3.4-5.0); ALBUMIN/GLOBULIN RATIO 0.9 (1.1-1.5); ALKALINE PHOSPHATASE 68 IU/L (46-116); ASPARTATE AMINO TRANSFERASE 12 U/L (10-37); BILIRUBIN,TOTAL 0.5 MG/DL (0.1-1.0); BLOOD UREA NITROGEN 16 MG/DL (7-18); MAGNESIUM 1.6 MG/DL (1.5-2.4); TOTAL PROTEIN 6.6 G/DL (6.4-8.2)
[2023-05-07] MEDS: atorvastatin 20mg tablet PO SCH (07:52)
[2023-05-07] MEDS: citalopram 20mg tablet PO SCH (07:52)
[2023-05-07] MEDS: busPIRone 15mg tablet PO SCH ×2 (07:52→20:49)
[2023-05-07] MEDS: pioglitazone 15mg tablet PO SCH (07:52)
[2023-05-07] MEDS: losartan 50mg tablet PO SCH (07:53)
[2023-05-07] MEDS: cloNIDine 0.1 mg tablet PO PRN ×2 (07:53→18:52)
[2023-05-07] MEDS: ciprofloxacin 250mg tablet PO SCH ×2 (07:54→20:49)
[2023-05-07 08:00] VITALS: BP 155/70; PULSE 88; RESP 16; TEMP 97.7; O2SAT 95
[2023-05-07] MEDS: K and/or MAG REPLACEMENT MC SCH ×2 (08:00→20:00)
--- NOTE | 2023-05-07 09:39 | NUR ---
Per EMR pt with T2DM, well controlled for age with A1c 7.6%. DM education not warranted at this time. Will continue to follow. Addendum: 05/07/23 at [address] Amended: Links added.
[2023-05-07] MEDS ORDERED: loperamide 2mg capsule PO PRN (13:20)
[2023-05-07] MEDS ORDERED: magnesium hydroxide 30ml (MOM) UD suspension PO PRN (13:20)
[2023-05-07] MEDS: mag hydrox/Alum hydrox/simeth 30ml oral suspension PO PRN (13:34)
[2023-05-07] MEDS ORDERED: lansoprazole 15mg solutab PO ONE (14:00)
[2023-05-07] MEDS ORDERED: CARIPRAZINE 1.5 MG CAPSULE PO SCH (14:13)
--- NOTE | 2023-05-07 14:50 | NUR ---
Nursing Progress Note: Problem: Pt admitted to [facility] at 1530 from ED fast track on voluntary status. Earlier today, pt. was seen in outpatient and sent to the ED for medical clearance and voluntary admission for Grave Disability d/t depression, anxiety and memory issues. Reports she has not been eating at home. Med hx: CVA/TIA/Stroke, Dementia, High Cholesterol, Hypertension, Diabetes, Anxiety, Depression. Interventions: Monitor patient behavior; Pt. disoriented to place and time- oriented. Reinforce reality; Q15 minutes checks; medicated pt. as ordered. Response: Pt. sitting in chair awake alert to own name and place but disoriented to day and events- oriented pt. sad affect at this time. Wearing clean green scrubs with unbrushed hair. Pt. states, I rather be home right now but reassured that we are keeping her safe here with the goal healing. Abx in place for a UTI. Lab work stabilizing K+ 4.4 held p.o potassium dose for 1500. Pt. Denies MH s/sx. prn anti-anxiety in place. Monitored blood sugars as follows: BS at 1300 143mg/dl & 1700 167mg/dl and pt receiving Actos po daily. Pt. was very anxious and tearful due to the incident of another patient screaming out- PA Abby hanna. Moved pt. to the room close to nurses station as intervention. Plan: JANETD
[2023-05-07] MEDS: potassium Cl 20 mEq SR tablet PO SCH (15:15)
[2023-05-07 19:50] VITALS: BP 193/90; PULSE 87; RESP 16; TEMP 96.8; O2SAT 96
[2023-05-07 22:28] VITALS: BP 136/76
--- NOTE | 2023-05-08 01:10 | NUR ---
Nursing Progress Note: [place] Problem: Pt admitted to [facility] at 1530 from ED fast track on voluntary status. Earlier today, pt. was seen in outpatient and sent to the ED for medical clearance and voluntary admission for Grave Disability d/t depression, anxiety and memory issues. Reports she has not been eating at home. Med hx: CVA/TIA/Stroke, Dementia, High Cholesterol, Hypertension, Diabetes, Anxiety, Depression. Interventions: Monitor patient behavior; Pt. disoriented to place and time- oriented. Reinforce reality; Q15 minutes checks; medicated pt. as ordered. Response: Pt. is lying in bed resting. Pt is cooperative with care. Denies depression but states she is a little anxious about getting back home to see her grandchildren. Denies SI/AH. Pt declined snacks, had to wake pt up for HS medications which she said she was feeling really sleepy. Pt went back to sleep, no needs at this time, will continue to monitor. Plan: TBD
[2023-05-08 07:00] VITALS: RESP 18; O2SAT 96
[2023-05-08] MEDS: pioglitazone 15mg tablet PO SCH (07:36)
[2023-05-08] MEDS: citalopram 20mg tablet PO SCH (07:36)
[2023-05-08] MEDS: donepezil 5mg tablet PO SCH (07:37)
[2023-05-08] MEDS: lansoprazole 15mg solutab PO SCH (07:37)
[2023-05-08] MEDS: busPIRone 15mg tablet PO SCH ×2 (07:38→20:21)
[2023-05-08] MEDS: losartan 50mg tablet PO SCH (07:38)
[2023-05-08] MEDS: K and/or MAG REPLACEMENT MC SCH ×2 (07:39→20:00)
[2023-05-08] MEDS: atorvastatin 20mg tablet PO SCH (07:39)
[2023-05-08 08:00] VITALS: BP 178/103; PULSE 74; RESP 18; TEMP 97.8
[2023-05-08] MEDS ORDERED: CARIPRAZINE 1.5 MG PO SCH (08:00)
[2023-05-08 08:11] LABS: MAGNESIUM 1.7 MG/DL (1.5-2.4); POTASSIUM 4.5 MMOL/L (3.5-5.1)
[2023-05-08] MEDS: ciprofloxacin 250mg tablet PO SCH ×2 (09:52→20:21)
[2023-05-08] MEDS: potassium Cl 20 mEq SR tablet PO SCH (15:15)
[2023-05-08] MEDS: LORazepam 0.5 MG tablet PO PRN (17:06)
--- NOTE | 2023-05-08 18:08 | NUR ---
Nursing Progress Note: Problem: Pt admitted to [facility] at 1530 from ED fast track on voluntary status. Earlier today, pt. was seen in outpatient and sent to the ED for medical clearance and voluntary admission for Grave Disability d/t depression, anxiety and memory issues. Reports she has not been eating at home. Med hx: CVA/TIA/Stroke, Dementia, High Cholesterol, Hypertension, Diabetes, Anxiety, Depression. Interventions: Monitor patient behavior; Pt. disoriented to place and time- oriented. Reinforce reality; Q15 minutes checks; medicated pt. as ordered. Response: Patient was asleep at change of shift and up for breakfast. Patient was pleasant today. Tearful at times when she couldn't get a hold of her son. Patient sleeps most of the day. Patient denies SI/HI. Patient denies AV hallucinations. Patient does appear depressed. Patient was very happy when her son called back. Patient came into the nurses station late this afternoon complaining of dysuria. Patient is on Cipro for a UTI. RN called Caty and got the go ahead to order a UA/culture if indicated. RN also ordered Pyridium TID. Patient then got very upset because her roommate would not be quiet and talked nonstop. Patient was tearful. Roommate upset. Neither patient wanted to move. Patient ultimately moved to a private room in [facility]. Urine was collected and sent. Patient received an Ativan. Continue to monitor. Plan: TBD
[2023-05-08 18:54] LABS: BILIRUBIN,URINE NEGATIVE (Neg); CLARITY,URINE CLEAR (Clear); COLOR,URINE STRAW (Yellow); GLUCOSE, URINE NEGATIVE (Neg); KETONES,URINE NEGATIVE (Neg); LEUKOCYTE ESTERASE ,URINE NEGATIVE (Neg); NITRITES, URINE NEGATIVE (Neg); OCCULT BLOOD,URINE NEGATIVE (Neg); PROTEIN,URINE TRACE mg/dl (Neg); UROBILINOGEN,URINE 0.2 E.U/dL (0.2-1.0)
[2023-05-08 19:00] LABS: UA COLLECTION TYPE CLN CATCH MIDSTREAM
[2023-05-08 19:02] LABS: SQUAMOUS EPITHELIAL CELL,UR MANY /LPF (FEW)
[2023-05-08 19:03] LABS: BACTERIA,URINE FEW /HPF (Neg); MUCUS STRANDS FEW /LPF (Neg); RBC,URINE 0-2 /HPF (0-2); WBC,URINE 0-4 /HPF (0-4)
[2023-05-08 20:00] VITALS: BP 150/69; PULSE 90; RESP 18; TEMP 97.8; O2SAT 99
[2023-05-08] MEDS: phenazopyridine 100mg tablet PO SCH (20:22)
--- NOTE | 2023-05-09 00:04 | NUR ---
Nursing Progress Note: [place] Problem: Pt admitted to [facility] at 1530 from ED fast track on voluntary status. Earlier today, pt. was seen in outpatient and sent to the ED for medical clearance and voluntary admission for Grave Disability d/t depression, anxiety and memory issues. Reports she has not been eating at home. Med hx: CVA/TIA/Stroke, Dementia, High Cholesterol, Hypertension, Diabetes, Anxiety, Depression. Interventions: Monitor patient behavior; Pt. disoriented to place and time- oriented. Reinforce reality; Q15 minutes checks; medicated pt. as ordered. Response: Patient was lying in bed at change of shift. Pt looks sad and depressed. She states she had a bad day and cried a lot. She was stressed about the roommate she had in [id number] and that she wasnt nice to her. This nurse told her she was able to move rooms and has a nice window to look out. She states her depression is 7/10 today. Before snack time pt c/o mild nausea, saltine crackers given with good effect. BG was 181 this evening. Pt took all HS medications and is currently sleeping. Will continue to monitor. Plan: TBD
[2023-05-09 07:00] VITALS: RESP 16; O2SAT 97
[2023-05-09] MEDS: ciprofloxacin 250mg tablet PO SCH ×2 (07:59→20:43)
[2023-05-09] MEDS: phenazopyridine 100mg tablet PO SCH ×3 (07:59→17:15)
[2023-05-09 08:00] VITALS: BP 197/94; PULSE 89; RESP 18; TEMP 97.6; O2SAT 97
[2023-05-09] MEDS: citalopram 20mg tablet PO SCH (08:00)
[2023-05-09] MEDS: atorvastatin 20mg tablet PO SCH (08:00)
[2023-05-09] MEDS: busPIRone 15mg tablet PO SCH ×2 (08:00→20:43)
[2023-05-09] MEDS: donepezil 5mg tablet PO SCH (08:00)
[2023-05-09] MEDS: lansoprazole 15mg solutab PO SCH (08:00)
[2023-05-09] MEDS: pioglitazone 15mg tablet PO SCH (08:00)
[2023-05-09] MEDS: losartan 50mg tablet PO SCH (08:01)
[2023-05-09 08:10] LABS: MAGNESIUM 1.7 MG/DL (1.5-2.4); POTASSIUM 4.3 MMOL/L (3.5-5.1)
[2023-05-09] MEDS: K and/or MAG REPLACEMENT MC SCH ×2 (08:52→20:00)
--- NOTE | 2023-05-09 09:05 | NUR ---
Initial: Pt admit DX dementia, UTI, hypokalemia, T2DM A1C 7.6%, HTN, grave disability, and major depressive d/o per EMR. PO 75-100% regular diet meeting estimated needs. LBM 05/08 per physical assessment. No nutrition interventions at this time. Will continue to follow. Rec: 1. continue regular diet 2. bowel care per rx 3. weekly wt Addendum: 05/09/23 at [address] Amended: Links added.
[2023-05-09] MEDS: acetaminophen 325mg tablet PO PRN (13:27)
[2023-05-09 15:20] VITALS: BP 168/82
[2023-05-09] MEDS: potassium Cl 20 mEq SR tablet PO SCH (15:21)
[2023-05-09] MEDS: cloNIDine 0.1 mg tablet PO PRN (15:23)
--- NOTE | 2023-05-09 16:02 | NUR ---
Nursing Progress Note: [place] Problem: Pt admitted to [facility] at 1530 from ED fast track on voluntary status. Grave Disability d/t depression, anxiety and memory issues. Reports she has not been eating at home. Med hx: CVA/TIA/Stroke, Dementia, High Cholesterol, Hypertension, Diabetes, Anxiety, Depression. Interventions: Medication administration, Monitor patient behavior, Reinforce reality, Q15 minutes checks. Response: Pt. received asleep and awoke for FBS: 166. She took her medications without hesitation, denies SI, HI, AH, VH. Pt. presents as confused at times, reports "I cant remember" Pt. endorses dysuria, continues on PO Keflex and pyridum with zero ASEs found. Fluids encouraged through out the shift, 1200 BS checked 182, pt. reports "I cant remeber what snack I ate" Pt. presents as fatigued, has good eye contact, down casted at times. She c/o WILCOX; PRN Tylenol administered with good results. Pt. BP was elevated PRN clonidine administered with good results. Pt. has fair hygiene, unkept, and wears unit scrubs. Plan: Currently on VOL Addendum: 05/09/23 at 1749 by Nichelle Sam LVN At 1700 BS 152
[2023-05-09 17:17] VITALS: BP 113/76
[2023-05-09 19:00] VITALS: BP 126/72; PULSE 81; RESP 14; TEMP 97.4; O2SAT 96
--- NOTE | 2023-05-10 03:39 | NUR ---
Nursing Progress Note: Problem: Pt admitted to [facility] at 1530 from ED fast track on voluntary status. Grave Disability d/t depression, anxiety and memory issues. Reports she has not been eating at home. Med hx: CVA/TIA/Stroke, Dementia, High Cholesterol, Hypertension, Diabetes, Anxiety, Depression. Interventions: Medication administration, Monitor patient behavior, Reinforce reality, Q15 minutes checks. Response: upon shift patient seen going back and forth from room to common room. During 1:1, patient was observed lying in bed with eyes closed but easily aroused. Patient denied all symptoms including pain. Patient says her last bowel movement was today 05/09. Patient states she enjoyed all meals in common room. Patient isnt interested in HS snack. Patient was very cooperative during medication pass as well as glucose check. Patient blood sugar was 206. Patient had hard time remembering what she had for dinner. Patient said she thinks she had cake for desert and thats probably what did it. Patient concerned about when she is able to go home, this nurse recommended her to speak to MD about the topic. Patients EMAR had magnesium and potassium replacement ordered if low but labs were reassuring and this nurse did not administer the replacement. Patient remained in bed for the rest of the night. No signs of obvious distress to note. Plan: Currently on VOL
--- NOTE | 2023-05-10 04:13 | NUR ---
GRIEVANCE MANAGER documentation: I have reviewed all interventions, assessments performed and documented by LYN Akhtar
[2023-05-10 07:00] VITALS: RESP 16; O2SAT 95
[2023-05-10 07:47] LABS: MAGNESIUM 1.8 MG/DL (1.5-2.4); POTASSIUM 5.5 MMOL/L (3.5-5.1)
[2023-05-10 07:48] VITALS: BP 171/83; PULSE 79; RESP 16; TEMP 97.7; O2SAT 95
[2023-05-10] MEDS: K and/or MAG REPLACEMENT MC SCH ×2 (08:00→20:00)
[2023-05-10] MEDS: pioglitazone 15mg tablet PO SCH (08:01)
[2023-05-10] MEDS: citalopram 20mg tablet PO SCH (08:01)
[2023-05-10] MEDS: phenazopyridine 100mg tablet PO SCH ×2 (08:02→12:26)
[2023-05-10] MEDS: busPIRone 15mg tablet PO SCH ×2 (08:02→20:11)
[2023-05-10] MEDS: atorvastatin 20mg tablet PO SCH (08:02)
[2023-05-10] MEDS: losartan 50mg tablet PO SCH (08:02)
[2023-05-10] MEDS: lansoprazole 15mg solutab PO SCH (08:03)
[2023-05-10] MEDS: ciprofloxacin 250mg tablet PO SCH ×2 (08:03→20:11)
[2023-05-10] MEDS: donepezil 5mg tablet PO SCH (08:03)
[2023-05-10] MEDS: potassium Cl 20 mEq SR tablet PO SCH (15:03)
--- NOTE | 2023-05-10 16:33 | NUR ---
Nursing Progress Note: [place] Problem: Pt admitted to [facility] at 1530 from ED fast track on voluntary status. Grave Disability d/t depression, anxiety and memory issues. Reports she has not been eating at home. Med hx: CVA/TIA/Stroke, Dementia, High Cholesterol, Hypertension, Diabetes, Anxiety, Depression. Interventions: Medication administration, Monitor patient behavior, Reinforce reality, Q15 minutes checks, Blood sugars monitored. Response: Pt. received asleep and awoke for FBS check: 143. She denies SI, HI, AH, VH and reports Im ready to go home She took her medication without hesitation and reports some dysuria. Pt. continues on PO Cipro and pyridum with zero ASEs found. Pt. presents with some confusion, cooperative, and smiles often. She spent time out in common areas and engaged socially with cohorts. Pt. noncompliant with CC snacks resulting in an elevated BS before lunch. She has fair hygiene, wears her hair in a bun, and uses unit scrubs. Hospitalist paged to verify if K+ supplement is to continue, recent Level 5.5, and no Hgb A1c on file. 1200 BS was 225 PRN: None Plan: Maintain safe environment and medication stabilization. Addendum: 05/10/23 at 1653 by Nichelle Sam LVN Pt. c/o RLQ dental pain; PRN Tylenol administered.
[2023-05-10] MEDS: acetaminophen 325mg tablet PO PRN ×2 (16:51→21:01)
--- NOTE | 2023-05-10 17:51 | NUR ---
HIGH DENSITY PRESS LABORER documentation: I have reviewed all interventions and assessments performed and documented by LYN Gómez.
[2023-05-10 19:40] VITALS: BP 176/89; PULSE 102; RESP 18; TEMP 97.9; O2SAT 95
[2023-05-10 19:41] VITALS: RESP 18; O2SAT 95
--- NOTE | 2023-05-11 03:07 | NUR ---
Nursing Progress Note: Problem: Pt admitted to [facility] at 1530 from ED fast track on voluntary status. Grave Disability d/t depression, anxiety and memory issues. Reports she has not been eating at home. Med hx: CVA/TIA/Stroke, Dementia, High Cholesterol, Hypertension, Diabetes, Anxiety, Depression. Interventions: Medication administration, Monitor patient behavior, Reinforce reality, Q15 minutes checks, Blood sugars monitored. Response: upon shift patient seen lying in bed with eyes closed. Patient easily aroused. During 1:1, patient c/o pain from tooth on left side. Patient was administered Tylenol for pain that was not fully affective. Patient has also c/o WILCOX and was given Tylenol when the time was appropriate. Patient blood sugar read 183. Patient admitted to being a little forgetful throughout the day. But does know she was up for all meals. Patient later seen on phone with her son and shares that it was a good talk just like every other time. She expressed the worry she went through when he was a new baby, saying he had to have a few surgeries due to an illness he was born with. She added that despite her failed marriage she loves all four of her boys! Patient currently in bed with eyes closed and light off. The light made her WILCOX worse. Plan: Maintain safe environment and medication stabilization.
--- NOTE | 2023-05-11 05:07 | NUR ---
CLOUD DEVELOPER documentation: I have reviewed all interventions, assessments performed and documented by LYN Akhtar
[2023-05-11] MEDS: potassium Cl 20 mEq SR tablet PO SCH (06:33)
[2023-05-11 07:00] VITALS: RESP 16; O2SAT 95
[2023-05-11] MEDS: donepezil 5mg tablet PO SCH (07:20)
[2023-05-11] MEDS: citalopram 20mg tablet PO SCH (07:20)
[2023-05-11] MEDS: atorvastatin 20mg tablet PO SCH (07:20)
[2023-05-11] MEDS: pioglitazone 15mg tablet PO SCH (07:20)
[2023-05-11] MEDS: losartan 50mg tablet PO SCH (07:21)
[2023-05-11] MEDS: busPIRone 15mg tablet PO SCH ×2 (07:21→20:39)
[2023-05-11 08:00] VITALS: BP 190/82; PULSE 84; RESP 16; TEMP 98.7; O2SAT 16
[2023-05-11] MEDS: K and/or MAG REPLACEMENT MC SCH ×2 (08:00→20:00)
[2023-05-11] MEDS: cloNIDine 0.1 mg tablet PO PRN (08:01)
[2023-05-11 08:30] VITALS: BP 116/62
[2023-05-11] MEDS: lansoprazole 15mg solutab PO SCH (11:17)
[2023-05-11] MEDS: acetaminophen 325mg tablet PO PRN ×3 (12:04→20:51)
[2023-05-11] MEDS ORDERED: sodium polystyrene sulfonate 15gm/60ml oral suspension PO ONE (12:15)
--- NOTE | 2023-05-11 16:50 | NUR ---
Nursing Progress Note: [place] Problem: Pt admitted to [facility] at 1530 from ED fast track on voluntary status. Grave Disability d/t depression, anxiety and memory issues. Reports she has not been eating at home. Med hx: CVA/TIA/Stroke, Dementia, High Cholesterol, Hypertension, Diabetes, Anxiety, Depression. Interventions: Medication administration, Monitor patient behavior, Reinforce reality, Q15 minutes checks, Blood sugars monitored. Response: Pt. received asleep and awoke for FBS check: 147. She was found to have an elevated BP of 193/89 all morning hypertensive medications administered with minimal result. Pt. BP re checked and found to be 190/82; PRN Catapres administered with good results. Hospitalist notified of K+ level 5.5, N.O received Kexalate one time. Pt. presents with good eye contact, smiled often during assessment, but later became tearful. She denies SI, HI, AH, VH and continues on PO ABX for UTI, she endorses slight dysuria sx. She spent a considerable amount of time napping today, and c/o backache; PRN Tylenol given with good results. She has poor hygiene, refused a shower this morning, hair is in disarray, and is wearing PJ scrubs from this morning. PRN: Tylenol, Lisaapres BS: 147, 127, TBA Plan: Maintain safe environment and medication stabilization. Addendum: 05/11/23 at 1718 by Nichelle Sam LVN At 1700 Pt. was sitting in her room crying, she reports "I dont know why Im so upset" she went on to discuss a traumatic time of being broke down on the [address] with her small children while out looking for her , which resulted in a hospitalization. Pt. was provided with positive reinforcement, active listening, but remained teary eyed. 1700 BS 172.
[2023-05-11 19:00] VITALS: RESP 18; O2SAT 96
[2023-05-11 20:00] VITALS: BP 104/51; PULSE 77; RESP 18; TEMP 98.6; O2SAT 96
--- NOTE | 2023-05-11 22:34 | NUR ---
Nursing Progress Note: Problem: Pt admitted to [facility] at 1530 from ED fast track on voluntary status. Grave Disability d/t depression, anxiety and memory issues. Reports she has not been eating at home. Med hx: CVA/TIA/Stroke, Dementia, High Cholesterol, Hypertension, Diabetes, Anxiety, Depression. Interventions: Medication administration, Monitor patient behavior, Reinforce reality, Q15 minutes checks, Blood sugars monitored. Response: Patient is pleasant and cooperative with care; compliant with medication. PRN Tylenol for pain provided. Patient c/o some burning with urination; Dr. Guzmán notified and N/O for UA with cult if indicated received. Patient is sleeping at this time and has not been able to provide sample. HS BS 207. She denied SI, HI, A/VH; no apparent delusions expressed. Patient is self isolative but briefly participated in HS snack prior to bed. Plan: Maintain safe environment and medication stabilization. Addendum: 05/12/23 at 0459 by Sandy Frances RN INSTRUMENTAL TEACHER documentation: I have reviewed and agree with all interventions, assessments performed and documented by Juju Garcia LVN.
[2023-05-12 07:00] VITALS: RESP 16; O2SAT 96
[2023-05-12] MEDS: lansoprazole 15mg solutab PO SCH (07:37)
[2023-05-12 07:41] VITALS: BP 154/84; PULSE 82; RESP 16; TEMP 98.2; O2SAT 96
[2023-05-12] MEDS: pioglitazone 15mg tablet PO SCH (08:39)
[2023-05-12] MEDS: losartan 50mg tablet PO SCH (08:40)
[2023-05-12] MEDS: donepezil 5mg tablet PO SCH (08:40)
[2023-05-12] MEDS: citalopram 20mg tablet PO SCH (08:40)
[2023-05-12] MEDS: atorvastatin 20mg tablet PO SCH (08:40)
[2023-05-12] MEDS: busPIRone 15mg tablet PO SCH ×2 (08:40→21:09)
[2023-05-12] MEDS: acetaminophen 325mg tablet PO PRN (14:29)
--- NOTE | 2023-05-12 16:28 | NUR ---
Nursing Progress Note: Problem : Pt admitted to [facility] at 1530 from ED fast track on voluntary status. Grave Disability d/t depression, anxiety and memory issues. Reports she has not been eating at home. Med hx: CVA/TIA/Stroke, Dementia, High Cholesterol, Hypertension, Diabetes, Anxiety, Depression. Interventions : Introduced self and established rapport, maintained a safe and supportive environment, ensured contract for safety, provided clear and simple instructions, provided active listening and positive encouragement, monitored blood glucose levels per orders, and maintained Q 15min safety checks. Response : Received pt. sleeping in bed at the beginning of the shift, she awoke and attended breakfast in the Group Room. Pt's blood glucose was monitored and continues to be elevated, however she remains on oral diabetes medication, will continue to monitor closely. Pt. presents as cooperative, slightly anxious, and is confused at times but is able to be re-oriented. She denies any S/I, H/I, A/V/WILCOX, and no delusional statements were made. Pt. does endorse some anxiety and when questioned regarding the cause stated, "I want to get home to see my grand kids. We all live close together." At approximately 1000, pt. came to the nurse's station reporting "Feeling weak." Her blood glucose was assessed and was elevated. Pt. was provided education regarding the importance of diet in helping to control her blood glucose levels and she reported some understanding. Pt. was provided a protein snack during snack time with effectiveness. She attended group. This mortgage loan underwriter spoke with Dr. Guzmán regarding pt's order for daily Potassium 20 MEQ. This order was discontinued as pt. had a previously elevated potassium level. Pt's blood potassium level will be redrawn on 05/14/23. Plan : Pt. continues to require medication adjustments and a safe and supportive environment. Addendum: 05/12/23 at 1707 by Beth Carrasco RN Pt. reported a tension headache which may be caused by anxiety, PRN Ativan was administered and will continue to monitor closely.
[2023-05-12] MEDS: LORazepam 0.5 MG tablet PO PRN (17:00)
[2023-05-12 19:32] VITALS: BP 95/56; PULSE 96; RESP 16; TEMP 96.3; O2SAT 96
--- NOTE | 2023-05-12 19:36 | NUR ---
Entered in error; disregard 193 VS.
[2023-05-12 19:42] VITALS: BP 163/84; PULSE 86; RESP 16; TEMP 97.7; O2SAT 95
--- NOTE | 2023-05-12 22:47 | NUR ---
Nursing Progress Note: Problem: Pt admitted to [facility] at 1530 from ED fast track on voluntary status. Grave Disability d/t depression, anxiety and memory issues. Reports she has not been eating at home. Med hx: CVA/TIA/Stroke, Dementia, High Cholesterol, Hypertension, Diabetes, Anxiety, Depression. Interventions: Medication administration, Monitor patient behavior, Reinforce reality, Q15 minutes checks, Blood sugars monitored. Response: Patient is pleasant and cooperative with care but appears confused at times; compliant with medication. HS BS 166. She was provided specimen cup and Castile wipes but has been unable to provide urine sample for UA at this time. Patient denied SI, HI, A/VH; no apparent delusions expressed. Patient mostly isolates to her room other than to grab/put away phone. She is observed sleeping and does not appear to be having difficulty. Plan: Maintain safe environment and medication stabilization. Addendum: 05/13/23 at 0512 by Juju Garcia RN Urine sample collected; pending results.
[2023-05-13] MEDS: acetaminophen 325mg tablet PO PRN (02:37)
[2023-05-13 05:29] LABS: BILIRUBIN,URINE NEGATIVE (Neg); CLARITY,URINE CLEAR (Clear); COLOR,URINE YELLOW (Yellow); GLUCOSE, URINE NEGATIVE (Neg); KETONES,URINE NEGATIVE (Neg); LEUKOCYTE ESTERASE ,URINE NEGATIVE (Neg); NITRITES, URINE NEGATIVE (Neg); OCCULT BLOOD,URINE NEGATIVE (Neg); PH,URINE 5.5 (4.8-8.0); PROTEIN,URINE NEGATIVE (Neg); UROBILINOGEN,URINE 0.2 E.U/dL (0.2-1.0)
[2023-05-13 05:33] LABS: UA COLLECTION TYPE CLN CATCH MIDSTREAM
[2023-05-13] MEDS: pioglitazone 15mg tablet PO SCH (07:10)
[2023-05-13] MEDS: cloNIDine 0.1 mg tablet PO PRN (07:11)
[2023-05-13] MEDS: donepezil 5mg tablet PO SCH (07:11)
[2023-05-13] MEDS: citalopram 20mg tablet PO SCH (07:11)
[2023-05-13] MEDS: losartan 50mg tablet PO SCH (07:13)
[2023-05-13] MEDS: metFORMIN 500mg tablet PO SCH ×2 (07:14→20:30)
[2023-05-13] MEDS: busPIRone 15mg tablet PO SCH ×2 (07:14→20:30)
[2023-05-13] MEDS: lansoprazole 15mg solutab PO SCH (07:14)
[2023-05-13] MEDS: atorvastatin 20mg tablet PO SCH (07:15)
[2023-05-13 07:32] VITALS: BP 194/110; PULSE 90; RESP 12; TEMP 97.8; O2SAT 97
[2023-05-13] MEDS: mag hydrox/Alum hydrox/simeth 30ml oral suspension PO PRN (10:04)
--- NOTE | 2023-05-13 17:59 | NUR ---
Nursing Progress Note: Problem: Pt admitted to [facility] at 1530 05/05/23 from ED fast track on voluntary status. Grave Disability d/t depression, anxiety and memory issues. Reports she has not been eating at home. Med hx: CVA/TIA/Stroke, Dementia, High Cholesterol, Hypertension, Diabetes, Anxiety, Depression. Interventions: Medication administration, Monitor patient behavior, Reinforce reality, Q15 minutes checks, Blood sugars monitoring. Response: 0600 Received pt. care report from nurse emergency room CS. 0630 Pt is still asleep. 0640 Pt. awake, pleasant, and cooperative with care but confused place and time; reoriented pt. to place and time. Pt. is complaint both care with medication. BS 149 AM, Noon 145mg/dl pt. on p.o hyperglycemic medication. Patient denied SI, HI, A/VH, and no delusions this shift. Patient participated in snack, and ate all meals today. Plan: Maintain safe environment and medication stabilization.
[2023-05-13 19:00] VITALS: RESP 20; O2SAT 99
[2023-05-13 19:12] VITALS: BP 110/68; PULSE 85; RESP 20; TEMP 97.5; O2SAT 99
--- NOTE | 2023-05-14 00:05 | NUR ---
Nursing Progress Note: Problem: Pt admitted to [facility] at 1530 from ED fast track on voluntary status. Grave Disability d/t depression, anxiety and memory issues. Reports she has not been eating at home. Med hx: CVA/TIA/Stroke, Dementia, High Cholesterol, Hypertension, Diabetes, Anxiety, Depression. Interventions: Medication administration, Monitor patient behavior, Reinforce reality, Q15 minutes checks, Blood sugars monitored. Response: Pt. received sitting quietly at change of shift. Pt. is pleasant and cooperative. Reports having an okay day. Pt. has some confusion about which hospital she is at and is reoriented to being at [facility]. Pt. remained in her room most of the night, except to come out for the phone. Pt. denies SI/HI/AH/VH. Pts. HS blood glucose 181 . Pt. is medication compliant. Observed and appears to be sleeping without difficulty. Plan: Maintain safe environment and medication stabilization.
[2023-05-14 07:00] VITALS: RESP 12; O2SAT 94
[2023-05-14 07:28] VITALS: BP 142/75; PULSE 87; RESP 12; TEMP 98; O2SAT 94
[2023-05-14] MEDS: donepezil 5mg tablet PO SCH (07:31)
[2023-05-14] MEDS: lansoprazole 15mg solutab PO SCH (07:31)
[2023-05-14] MEDS: citalopram 20mg tablet PO SCH (07:31)
[2023-05-14] MEDS: losartan 50mg tablet PO SCH (07:31)
[2023-05-14] MEDS: busPIRone 15mg tablet PO SCH ×2 (07:31→20:22)
[2023-05-14] MEDS: pioglitazone 15mg tablet PO SCH (07:31)
[2023-05-14] MEDS: metFORMIN 500mg tablet PO SCH ×2 (07:32→20:22)
[2023-05-14] MEDS: atorvastatin 20mg tablet PO SCH (07:33)
--- NOTE | 2023-05-14 13:39 | NUR ---
Nursing Progress Note: Problem: Pt admitted to [facility] at 1530 from ED fast track on voluntary status. Grave Disability d/t depression, anxiety and memory issues. Reports she has not been eating at home. Med hx: CVA/TIA/Stroke, Dementia, High Cholesterol, Hypertension, Diabetes, Anxiety, Depression. Interventions: Medication administration, Monitor patient behavior, Reinforce reality, Q15 minutes checks, Blood sugars monitored. Response: Patient is pleasant and cooperative with care; compliant with medication. AM BS: 128 and Midday BS: 140. Patient denied SI, HI, A/VH; no apparent delusions expressed. Patient presents disheveled and malodorous; she is self isolative but participated in all meals and snacks in the community room. Plan: Maintain safe environment and medication stabilization. Addendum: 05/14/23 at 1401 by Juju Garcia RN Patient came out of her tearful and stating her son needs her home; she appeared to become more anxious the more spoke about him. PRN Ativan provided.
[2023-05-14] MEDS: LORazepam 0.5 MG tablet PO PRN (14:04)
[2023-05-14 19:00] VITALS: RESP 16; O2SAT 98
[2023-05-14] MEDS: cloNIDine 0.1 mg tablet PO PRN (19:29)
[2023-05-14 20:00] VITALS: BP 174/84; PULSE 95; RESP 16; TEMP 98.1; O2SAT 98
[2023-05-14 20:22] VITALS: BP 145/79
--- NOTE | 2023-05-15 01:33 | NUR ---
Nursing Progress Note: Problem: Pt admitted to [facility] at 1530 from ED fast track on voluntary status. Grave Disability d/t depression, anxiety and memory issues. Reports she has not been eating at home. Med hx: CVA/TIA/Stroke, Dementia, High Cholesterol, Hypertension, Diabetes, Anxiety, Depression. Interventions: Medication administration, Monitor patient behavior, Reinforce reality, Q15 minutes checks, Blood sugars monitored. Response: Received pt. awake in bed at change of shift. Pt. is pleasant and cooperative. Pt. denies SI/HI/AH/VH. Pt. continues to self isolate to her room but comes out to use the phone. Pt. is malodorous. Pt. was offered a shower but she declined. Pt. took medication without difficulty. Pts. BP 174/84; PRN clonidine was given for elevated BP. Pts. BP was rechecked an hour later and read 145/79. HS blood glucose 158. Observed and appears to be sleeping without difficulty. Plan: Maintain safe environment and medication stabilization.
[2023-05-15 07:21] VITALS: BP 132/75; PULSE 75; RESP 20; TEMP 98.3; O2SAT 96
[2023-05-15] MEDS: lansoprazole 15mg solutab PO SCH (07:37)
[2023-05-15] MEDS: busPIRone 15mg tablet PO SCH ×2 (09:04→21:18)
[2023-05-15] MEDS: atorvastatin 20mg tablet PO SCH (09:04)
[2023-05-15] MEDS: metFORMIN 500mg tablet PO SCH ×2 (09:04→21:18)
[2023-05-15] MEDS: donepezil 5mg tablet PO SCH (09:05)
[2023-05-15] MEDS: pioglitazone 15mg tablet PO SCH (09:05)
[2023-05-15] MEDS: citalopram 20mg tablet PO SCH (09:05)
[2023-05-15] MEDS: losartan 50mg tablet PO SCH (09:05)
[2023-05-15] MEDS: acetaminophen 325mg tablet PO PRN (16:30)
--- NOTE | 2023-05-15 17:12 | NUR ---
Nursing Progress Note: Problem: Pt admitted to [facility] at 1530 from ED fast track on voluntary status. Grave Disability d/t depression, anxiety and memory issues. Reports she has not been eating at home. Med hx: CVA/TIA/Stroke, Dementia, High Cholesterol, Hypertension, Diabetes, Anxiety, Depression. Interventions: Medication administration, Monitor patient behavior, Reinforce reality, Q15 minutes checks, Blood sugars monitored. Response: Pt was planning for discharge today. Pt was apprehensive about discharge. After speaking with MD, they decided pt will not discharge today. Pt seems less anxious now. Pt glucose 129 and 142 today.
[2023-05-15 19:00] VITALS: RESP 17; O2SAT 96
[2023-05-15 20:00] VITALS: BP 145/75; PULSE 92; RESP 17; TEMP 97.2; O2SAT 96
--- NOTE | 2023-05-16 00:59 | NUR ---
Nursing Progress Note: Problem: Pt admitted to [facility] at 1530 from ED fast track on voluntary status. Grave Disability d/t depression, anxiety and memory issues. Reports she has not been eating at home. Med hx: CVA/TIA/Stroke, Dementia, High Cholesterol, Hypertension, Diabetes, Anxiety, Depression. Interventions: Medication administration, Monitor patient behavior, Reinforce reality, Q15 minutes checks, Blood sugars monitored. Response: Pt. received lying in bed at change of shift. Pt. denies SI/HI/AH/VH , anxiety and depression. Pt. self isolates to her room. Pt. was encouraged to attend evening snack. After snack pt. took a shower. Clean linen applied to bed by MHT. Pt. compliant with night medication. Pt. called and talked to her son before going to bed. Observed and appears sleeping without difficulty. HS blood glucose 159. Plan: Maintain safe environment and medication stabilization.
[2023-05-16] MEDS: lansoprazole 15mg solutab PO SCH (07:01)
[2023-05-16] MEDS: cloNIDine 0.1 mg tablet PO PRN (07:01)
[2023-05-16] MEDS: busPIRone 15mg tablet PO SCH ×2 (07:29→20:50)
[2023-05-16] MEDS: metFORMIN 500mg tablet PO SCH ×2 (07:29→20:50)
[2023-05-16] MEDS: atorvastatin 20mg tablet PO SCH (07:30)
[2023-05-16] MEDS: donepezil 5mg tablet PO SCH (07:30)
[2023-05-16] MEDS: losartan 50mg tablet PO SCH (07:30)
[2023-05-16] MEDS: citalopram 20mg tablet PO SCH (07:30)
[2023-05-16] MEDS: pioglitazone 15mg tablet PO SCH (07:31)
[2023-05-16 08:00] VITALS: BP 218/116; PULSE 89; RESP 18; TEMP 98.2; O2SAT 100
[2023-05-16 10:00] VITALS: BP 114/56; PULSE 82; RESP 16; O2SAT 94
[2023-05-16] MEDS: LORazepam 0.5 MG tablet PO PRN (15:53)
[2023-05-16] MEDS: acetaminophen 325mg tablet PO PRN (15:53)
--- NOTE | 2023-05-16 17:08 | NUR ---
Nursing Progress Note: Problem: Pt admitted to [facility] at 1530 from ED fast track on voluntary status. Grave Disability d/t depression, anxiety and memory issues. Reports she has not been eating at home. Med hx: CVA/TIA/Stroke, Dementia, High Cholesterol, Hypertension, Diabetes, Anxiety, Depression. Interventions: Medication administration, Monitor patient behavior, Reinforce reality, Q15 minutes checks, Blood sugars monitored. Response: Patient is pleasant and cooperative with care. Pt compliant with medications. AM glucose 115, lunch 103. Pt around 1600 complaining about one of the manic patients "Just wont stop talking, she just keeps talking and talking. I cant take it anymore. Shes giving me a headache." Pt was really upset. Ativan and Tylenol given.
[2023-05-16 19:00] VITALS: RESP 16; O2SAT 95
[2023-05-16 20:00] VITALS: BP 117/64; PULSE 84; RESP 16; TEMP 97.8; O2SAT 95
--- NOTE | 2023-05-17 01:44 | NUR ---
Nursing Progress Note: Problem: Pt admitted to [facility] at 1530 from ED fast track on voluntary status. Grave Disability d/t depression, anxiety and memory issues. Reports she has not been eating at home. Med hx: CVA/TIA/Stroke, Dementia, High Cholesterol, Hypertension, Diabetes, Anxiety, Depression. Interventions: Medication administration, Monitor patient behavior, Reinforce reality, Q15 minutes checks, Blood sugars monitored. Response: Pt. received in room sleeping at change of shift. Pt. is pleasant and cooperative; compliant with medications. Pt. denies SI/HI/AH/VH. She isolated to her room this shift. Pt. was encouraged to attend evening snack but stated "I'm just going to rest for the night". HS blood glucose 157.
[2023-05-17 07:00] VITALS: RESP 16; O2SAT 98
[2023-05-17] MEDS: lansoprazole 15mg solutab PO SCH (07:40)
[2023-05-17 08:00] VITALS: BP 148/75; PULSE 78; RESP 16; TEMP 98.4; O2SAT 98
[2023-05-17] MEDS: pioglitazone 15mg tablet PO SCH (08:26)
[2023-05-17] MEDS: donepezil 5mg tablet PO SCH (08:27)
[2023-05-17] MEDS: busPIRone 15mg tablet PO SCH (08:27)
[2023-05-17] MEDS: metFORMIN 500mg tablet PO SCH ×2 (08:28→20:19)
[2023-05-17] MEDS: citalopram 20mg tablet PO SCH (08:28)
[2023-05-17] MEDS: atorvastatin 20mg tablet PO SCH (08:28)
[2023-05-17] MEDS: losartan 50mg tablet PO SCH (08:28)
[2023-05-17] MEDS: acetaminophen 325mg tablet PO PRN (08:37)
--- NOTE | 2023-05-17 12:59 | NUR ---
Pt's blood glucose was 108 prior to lunch, not 102. Charted 102 by accident.
[2023-05-17] MEDS: LORazepam 0.5 MG tablet PO PRN (15:11)
--- NOTE | 2023-05-17 17:23 | NUR ---
Nursing Progress Note: Problem : Pt admitted to [facility] at 1530 from ED fast track on voluntary status. Grave Disability d/t depression, anxiety and memory issues. Reports she has not been eating at home. Med hx: CVA/TIA/Stroke, Dementia, High Cholesterol, Hypertension, Diabetes, Anxiety, Depression. Interventions : Maintained a safe and supportive environment, ensured contract for safety, provided clear and simple instructions, provided active listening and positive encouragement, monitored blood glucose levels per orders and obtained an order for decreased monitoring to daily, and maintained Q 15min safety checks. Response : Received pt. sleeping in bed at the beginning of the shift, she awoke and attended breakfast in the Group Room, and afterwards retreated back to bed as is her routine. Pt. reported neck pain and PRN Tylenol was administered with effectiveness. Pt. presents as cooperative, slightly anxious, and is confused at times but is able to be re-oriented. She continues to deny all mental health s/s aside from some ongoing anxiety r/t her desire to discharge. Pt. did not attend group despite encouragement from staff. She continues to present as somewhat disheveled and requires encouragement form staff to shower and perform her ADLs. In the afternoon, pt. presented with increased anxiety and irritability. She was noted to be up and restless in the hallway making various telephone calls and approaching different staff members asking them to go talk to one of her peers about ceasing to sing aloud in her room. Staff did talk to this peer, however pt. was not satisfied with this and proceeded to walk to the door of this peers room and tell her to be quiet. Pt. required redirection. Finally, at approximately 1500, pt. began irritably raising her voice at staff in the hallway, demanding to leave, and tearful. This keno writer/runner redirected pt. back to her room and provided active listening and positive encouragement. Pt. stated, "Why don't people respect other people's boundaries? She thinks her voice is wonderful and wants to share it with the world!" She then continued on in a circumstantial manner to talk about how her grandchildren sound better than that. Pt. also apologized for getting upset reporting she usually doesn't do this, and appeared to be slightly confused. PRN Ativan was provided with effectiveness, and will continue to monitor pt. closely. Per Dr. Watson, staff is to encourage pt. to stay a few more days for stabilization, will endorse to Noc shift. Plan : Pt. continues to require medication adjustments and a safe and supportive environment.
[2023-05-17 19:00] VITALS: RESP 18; O2SAT 96
[2023-05-17 20:00] VITALS: BP 157/87; PULSE 92; RESP 18; TEMP 98.4; O2SAT 96
[2023-05-17] MEDS ORDERED: LORazepam 0.5 MG tablet PO ONE (20:15)
[2023-05-17] MEDS: busPIRone 5mg tablet PO SCH (20:19)
[2023-05-17] MEDS: cloNIDine 0.1 mg tablet PO PRN (20:21)
--- NOTE | 2023-05-17 23:36 | NUR ---
Nursing Progress Note: Problem : Pt admitted to [facility] at 1530 from ED fast track on voluntary status. Grave Disability d/t depression, anxiety and memory issues. Reports she has not been eating at home. Med hx: CVA/TIA/Stroke, Dementia, High Cholesterol, Hypertension, Diabetes, Anxiety, Depression. Interventions : Maintained a safe and supportive environment, ensured contract for safety, provided clear and simple instructions, provided active listening and positive encouragement, monitored blood glucose levels per orders and obtained an order for decreased monitoring to daily, and maintained Q 15min safety checks. Response : Pt. received eating dinner in the community room at change of shift. Pt. is pleasant and cooperative. Pt. denies SI/HI/AH/VH. Pt. came out of room upset and crying because of the chaos tonight with other pts. Pt. reports feeling scared and states she wants to go home. Pt. was reassured she is safe here. A one time order was approved for ativan 0.5 mg and provided to pt. along with her night medications. Pt. remained in her room for the night. Observed and appears sleeping without difficulty. Plan : Pt. continues to require medication adjustments and a safe and supportive environment. Addendum: 05/18/23 at 0428 by Landy Mix RN DAY CAMP UNIT LEADER documentation: I have reviewed and agree with all interventions, assessments performed and documented by Charissa Keller LVN.
[2023-05-18 07:00] VITALS: BP 151/82; PULSE 84; RESP 16; TEMP 98.1; O2SAT 98
[2023-05-18] MEDS: lansoprazole 15mg solutab PO SCH (07:34)
[2023-05-18] MEDS: donepezil 5mg tablet PO SCH (08:39)
[2023-05-18] MEDS: pioglitazone 15mg tablet PO SCH (08:39)
[2023-05-18] MEDS: CITALOpram 10mg tablet PO SCH (08:40)
[2023-05-18] MEDS: busPIRone 5mg tablet PO SCH ×2 (08:40→19:57)
[2023-05-18] MEDS: atorvastatin 20mg tablet PO SCH (08:41)
[2023-05-18] MEDS: losartan 50mg tablet PO SCH (08:41)
[2023-05-18] MEDS: metFORMIN 500mg tablet PO SCH ×2 (08:41→19:58)
--- NOTE | 2023-05-18 12:41 | NUR ---
F/u 05/18: Pt continues on a regular diet with average PO intake 95% x 17 meals meeting estimated kcal and protein needs. LBM on 05/16 with available PRN MoM per EMR. No nutrition interventions warranted at this time. Will continue to monitor. Rec: 1. continue regular diet 2. bowel care per rx 3. weekly wt Addendum: 05/18/23 at [address] Amended: Links added.
--- NOTE | 2023-05-18 17:41 | NUR ---
Nursing Progress Note: Problem : Pt admitted to [facility] at 1530 from ED fast track on voluntary status. Grave Disability d/t depression, anxiety and memory issues. Reports she has not been eating at home. Med hx: CVA/TIA/Stroke, Dementia, High Cholesterol, Hypertension, Diabetes, Anxiety, Depression. Interventions : Maintained a safe and supportive environment, ensured contract for safety, provided clear and simple instructions, provided active listening and positive encouragement, encouraged participation on unit, monitored anxiety and provided redirection as needed, and maintained Q 15min safety checks. Response : Received pt. sleeping in bed at the beginning of the shift, she was awoken to assess her blood glucose level and afterwards attended breakfast in the Group Room. Afterwards, pt. retreated back to bed as is her routine. Pt. continues to present as cooperative, slightly anxious, and is confused at times but is able to be re-oriented. She continues to deny all mental health s/s aside from some anxiety r/t to her ongoing desire to discharge, however she did not perseverate on this throughout the shift as she had done previously. Pt. continues to present as somewhat disheveled and was encouraged by this typewriter aligner to shower, however refused stating, "I'm too tired." Pt. did attend Group this shift, but was not observed to be participating much. She stated, "I can't focus right now with everything going on." Previous to attending group, pt. had witnessed a loud outburst requiring the presence of security from another patient on the unit. This typewriter aligner had encouraged pt. to go back to her room during this incident, however she refused stating, "I'm so scared I can't move. I will feel better if I know what's going on." In the afternoon, pt. again started to complain the about noise on the unit and began to become anxious, however she was able to be redirected. Pt. was observed to be talking on the telephone and conversations appeared to be going well. Plan : Pt. continues to require medication adjustments and a safe and supportive environment.
[2023-05-18 20:00] VITALS: PULSE 84; RESP 18; TEMP 97.6; O2SAT 98
--- NOTE | 2023-05-19 03:29 | NUR ---
Nursing Progress Note: [place] Problem: Pt admitted to [facility] at 1530 from ED fast track on voluntary status. Grave Disability d/t depression, anxiety and memory issues. Reports she has not been eating at home. Med hx: CVA/TIA/Stroke, Dementia, High Cholesterol, Hypertension, Diabetes, Anxiety, Depression. Interventions : Maintained a safe and supportive environment, ensured contract for safety, provided clear and simple instructions, provided active listening and positive encouragement, encouraged participation on unit, monitored anxiety and provided redirection as needed, and maintained Q 15min safety checks. Response: beginning of shift patient seen handling phone in her room. During 1:1, patient denied all psychosis symptoms as well as pain. Patient LBM 05/18. Patient blood glucose 150. When walking in patient was seen sobbing. Patient had just got off the phone with son, and son told her she has a memory problem. Patient was so upset, gradually getting more and more worked up. Patient repeatedly asked if she was going to get better and kept saying she wanted to see her son that she takes care of at home. Patient is scared of whats next. Patient says in defense to son telling her the news, I remember somethings. Patient doesnt realize she is repeating the same thing over and over again. Patient has told me about her son at home about 7 times in same sitting. Patient currently in bed with eyes closed. No obvious signs of distress to note. Plan: Pt. continues to require medication adjustments and a safe and supportive environment. Addendum: 05/19/23 at 0459 by Landy Mix RN PHARMACY SERVICES REPRESENTATIVE documentation: I have reviewed and agree with all interventions, assessments performed and documented by Jimi Nassar LVN.
[2023-05-19 07:30] VITALS: BP 125/91; PULSE 94; RESP 16; TEMP 98.4; O2SAT 96
[2023-05-19] MEDS: CITALOpram 10mg tablet PO SCH (07:55)
[2023-05-19] MEDS: atorvastatin 20mg tablet PO SCH (07:56)
[2023-05-19] MEDS: busPIRone 5mg tablet PO SCH ×2 (07:56→20:17)
[2023-05-19] MEDS: lansoprazole 15mg solutab PO SCH (07:56)
[2023-05-19] MEDS: losartan 50mg tablet PO SCH (07:57)
[2023-05-19] MEDS: pioglitazone 15mg tablet PO SCH (07:57)
[2023-05-19] MEDS: donepezil 5mg tablet PO SCH (07:57)
[2023-05-19] MEDS: metFORMIN 500mg tablet PO SCH ×2 (07:57→20:17)
[2023-05-19] MEDS: acetaminophen 325mg tablet PO PRN (17:14)
--- NOTE | 2023-05-19 17:44 | NUR ---
Nursing Progress Note: Problem : Pt admitted to [facility] at 1530 from ED fast track on voluntary status. Grave Disability d/t depression, anxiety and memory issues. Reports she has not been eating at home. Med hx: CVA/TIA/Stroke, Dementia, High Cholesterol, Hypertension, Diabetes, Anxiety, Depression. Interventions : Maintained a safe and supportive environment, ensured contract for safety, provided clear and simple instructions, provided active listening and positive encouragement, encouraged participation on unit, monitored anxiety and provided redirection as needed, and maintained Q 15min safety checks. Response : RN received pt. asleep in bed at start of shift. Accu check was 122. Pt. awoke for breakfast and took all medication, pt. went back to her room and rested in bed. Pt. became upset by a female peer singing loudly in her room. Pt. states, I need some peace and quiet and no one can get that here. 1:1 done at bedside, pt. denies SI/HI, A/V hallucinations. Pt. is confused at times and this AM was A&O to self only. Pt. observed watching TV in community room in the afternoon and eating snack. Pt. observed making several phone calls throughout the day. Pt. c/o back pain rated 4/10 and received Tylenol 650mg po with good effect. Plan : Pt. continues to require medication adjustments and a safe and supportive environment.
[2023-05-19 19:42] VITALS: RESP 18; O2SAT 98
[2023-05-19 19:43] VITALS: BP 160/80; PULSE 89; RESP 18; TEMP 98.1; O2SAT 98
--- NOTE | 2023-05-20 03:16 | NUR ---
Nursing Progress Note: [place] Problem: Pt admitted to [facility] at 1530 from ED fast track on voluntary status. Grave Disability d/t depression, anxiety and memory issues. Reports she has not been eating at home. Med hx: CVA/TIA/Stroke, Dementia, High Cholesterol, Hypertension, Diabetes, Anxiety, Depression. Interventions : Maintained a safe and supportive environment, ensured contract for safety, provided clear and simple instructions, provided active listening and positive encouragement, encouraged participation on unit, monitored anxiety and provided redirection as needed, and maintained Q 15min safety checks. Response: upon shift patient was seen in common room eating dinner. Patient was asked how her day was and she said much better! Patient continued to tell this nurse that her granddaughter works here and described which staff member she was. Patient denied all psychosis symptoms and pain. Patient admitted to forgetting short term things. Like things that happened last week, I dont remember. Patient ate about 50% of her overall dinner. Patient Blood glucose level was 164. Patient agrees to receive a shower. Patient continues to comply with HS medication regimen. Patient currently in bed with eyes closed, no obvious signs of distress to note. Plan: Pt. continues to require medication adjustments and a safe and supportive environment
[2023-05-20] MEDS: donepezil 5mg tablet PO SCH (07:41)
[2023-05-20] MEDS: lansoprazole 15mg solutab PO SCH (07:41)
[2023-05-20] MEDS: metFORMIN 500mg tablet PO SCH ×2 (07:41→19:57)
[2023-05-20] MEDS: pioglitazone 15mg tablet PO SCH (07:42)
[2023-05-20] MEDS: CITALOpram 10mg tablet PO SCH (07:42)
[2023-05-20] MEDS: atorvastatin 20mg tablet PO SCH (07:42)
[2023-05-20] MEDS: losartan 50mg tablet PO SCH (07:42)
[2023-05-20] MEDS: busPIRone 5mg tablet PO SCH ×2 (07:43→19:57)
[2023-05-20 08:00] VITALS: BP 166/94; PULSE 90; RESP 12; TEMP 97.7; O2SAT 99
[2023-05-20] MEDS: acetaminophen 325mg tablet PO PRN (14:29)
--- NOTE | 2023-05-20 17:01 | NUR ---
Nursing Progress Note: Problem : Pt admitted to [facility] at 1530 from ED fast track on voluntary status. Grave Disability d/t depression, anxiety and memory issues. Reports she has not been eating at home. Med hx: CVA/TIA/Stroke, Dementia, High Cholesterol, Hypertension, Diabetes, Anxiety, Depression. Interventions : Maintained a safe and supportive environment, ensured contract for safety, provided clear and simple instructions, provided active listening and positive encouragement, encouraged participation on unit, monitored anxiety and provided redirection as needed, and maintained Q 15min safety checks. Response : RN received pt. asleep in bed at start of shift. Pt. took all medications and ate breakfast in community room. Pt. went back to her room and napped. Pt. isolated to her room most of the day, coming out for meals and snacks. 1:1 done at bedside, pt. denies SI/HI, A/V hallucinations. Pt c/o too much noise on the unit, stating, I need quiet to be able to rest. Pt. talked with this RN about her family. Pt. reports having her first child when she was 15 y.o. Pt. is pleasant and reports she is feeling good and sleeping well at night. Pt. c/o back pain rated 7/10 and received Tylenol 650mg with moderate effect. Plan : Pt. continues to require medication adjustments and a safe and supportive environment.
[2023-05-20 19:00] VITALS: RESP 17; O2SAT 97
[2023-05-20 20:00] VITALS: BP 154/91; PULSE 82; RESP 17; TEMP 98.4; O2SAT 97
[2023-05-20] MEDS: cloNIDine 0.1 mg tablet PO PRN (23:05)
[2023-05-20] MEDS: LORazepam 0.5 MG tablet PO PRN (23:05)
--- NOTE | 2023-05-21 03:21 | NUR ---
Nursing Progress Note: Problem: Pt admitted to [facility] at 1530 from ED fast track on voluntary status. Grave Disability d/t depression, anxiety and memory issues. Reports she has not been eating at home. Med hx: CVA/TIA/Stroke, Dementia, High Cholesterol, Hypertension, Diabetes, Anxiety, Depression. Interventions : Maintained a safe and supportive environment, ensured contract for safety, provided clear and simple instructions, provided active listening and positive encouragement, encouraged participation on unit, monitored anxiety and provided redirection as needed, and maintained Q 15min safety checks. Response: This nurse took over care of patient at 1800. Patient was seen in room on phone with son having a great talk. Patient was assessed for pain after being administered Tylenol from previous shift. Tylenol was effective. Patient misses her family but believes this is her time away to get better, I dont want my family to see me in here and like this. Patient c/o mild burning on urination, this nurse put order in for UA. Patient admitted to noticing the burning starting today. Patient does not experience any type of psychosis symptoms but does admit to having some memory problems. Patient last bowel movement 05/19. Patient BS at HS 150. Patient blood pressure at 2300 was 154/91, charge nurse administered PRN Ativan and clonidine. Patient currently in bed with head at foot and foot at head. No obvious signs of distress to note. Plan: Pt. continues to require medication adjustments and a safe and supportive environment. Addendum: 05/21/23 at 0412 by Sandy Frances RN OVERHEAD CLEANER MAINTAINER documentation: I have reviewed and agree with all interventions, assessments performed and documented by Jimi Nassar LVN.
[2023-05-21] MEDS: lansoprazole 15mg solutab PO SCH (07:30)
[2023-05-21 08:00] VITALS: BP 186/95; PULSE 85; RESP 14; TEMP 98; O2SAT 97
[2023-05-21] MEDS: busPIRone 5mg tablet PO SCH ×2 (09:10→20:11)
[2023-05-21] MEDS: metFORMIN 500mg tablet PO SCH ×2 (09:10→20:11)
[2023-05-21] MEDS: pioglitazone 15mg tablet PO SCH (09:10)
[2023-05-21] MEDS: losartan 50mg tablet PO SCH (09:11)
[2023-05-21] MEDS: donepezil 5mg tablet PO SCH (09:11)
[2023-05-21] MEDS: CITALOpram 10mg tablet PO SCH (09:11)
[2023-05-21] MEDS: atorvastatin 20mg tablet PO SCH (09:12)
[2023-05-21] MEDS: mag hydrox/Alum hydrox/simeth 30ml oral suspension PO PRN (15:00)
--- NOTE | 2023-05-21 17:27 | NUR ---
Nursing Progress Note: Problem: Pt admitted to [facility] on voluntary status. Grave Disability d/t depression, anxiety and memory issues. Reports she has not been eating at home. Med hx: CVA/TIA/Stroke, Dementia, High Cholesterol, Hypertension, Diabetes, Anxiety, Depression. Interventions: Maintained a safe and supportive environment, ensured contract for safety, provided clear and simple instructions, provided active listening and positive encouragement, encouraged participation on unit, monitored anxiety and provided redirection as needed, and maintained Q 15min safety checks. Response: RN received pt. asleep in bed at start of shift. Pt. took all medications. She is compliant with assessments. Pt. isolated to her room most of the day, coming out for meals and snacks. Pt. denies SI/HI, A/V hallucinations. Plan: Pt. continues to require medication adjustments and a safe and supportive environment.
[2023-05-21 19:24] VITALS: BP 161/83; PULSE 87; RESP 18; TEMP 97.2; O2SAT 97
--- NOTE | 2023-05-21 23:23 | NUR ---
Nursing Progress Note: Problem: Pt admitted to [facility] on voluntary status. Grave Disability d/t depression, anxiety and memory issues. Reports she has not been eating at home. Med hx: CVA/TIA/Stroke, Dementia, High Cholesterol, Hypertension, Diabetes, Anxiety, Depression. Interventions: Maintained a safe and supportive environment, ensured contract for safety, provided clear and simple instructions, provided active listening and positive encouragement, encouraged participation on unit, monitored anxiety and provided redirection as needed, and maintained Q 15min safety checks. Response: Patient is pleasant and cooperative with care; compliant with medication. Patient denied SI, HI, A/VH; no apparent delusions expressed but did appear confused. She repeated herself several times and forgot where her room was located. She showered and talked on the phone prior to bed; observed sleeping and does not appear to be having difficulty. Plan: Pt. continues to require medication adjustments and a safe and supportive environment.
[2023-05-22 07:53] VITALS: BP 134/77; PULSE 94; RESP 17; TEMP 96.8; O2SAT 97
[2023-05-22] MEDS: donepezil 5mg tablet PO SCH (08:16)
[2023-05-22] MEDS: losartan 50mg tablet PO SCH (08:16)
[2023-05-22] MEDS: atorvastatin 20mg tablet PO SCH (08:16)
[2023-05-22] MEDS: busPIRone 5mg tablet PO SCH ×2 (08:16→20:10)
[2023-05-22] MEDS: metFORMIN 500mg tablet PO SCH ×2 (08:16→20:10)
[2023-05-22] MEDS: CITALOpram 10mg tablet PO SCH (08:16)
[2023-05-22] MEDS: pioglitazone 15mg tablet PO SCH (08:16)
[2023-05-22] MEDS: lansoprazole 15mg solutab PO SCH (08:17)
[2023-05-22] MEDS: mag hydrox/Alum hydrox/simeth 30ml oral suspension PO PRN (09:22)
--- NOTE | 2023-05-22 10:44 | NUR ---
Nursing Progress Note: Problem: Pt admitted to [facility] on voluntary status. Grave Disability d/t depression, anxiety and memory issues. Reports she has not been eating at home. Med hx: CVA/TIA/Stroke, Dementia, High Cholesterol, Hypertension, Diabetes, Anxiety, Depression. Interventions: Maintained a safe and supportive environment, ensured contract for safety, provided clear and simple instructions, provided active listening and positive encouragement, encouraged participation on unit, monitored anxiety and provided redirection as needed, and maintained Q 15min safety checks. Response: Patient is pleasant and cooperative with care; compliant with medication. PRN Maalox provided for indigestion. She denied SI, HI, A/VH; no apparent delusions expressed. Patient is self isolative but participates in meals. Plan: Pt. continues to require medication adjustments and a safe and supportive environment.
[2023-05-22 19:25] VITALS: BP 171/79; PULSE 80; RESP 18; TEMP 96.5; O2SAT 98
[2023-05-22] MEDS: LORazepam 0.5 MG tablet PO PRN (22:10)
--- NOTE | 2023-05-23 00:25 | NUR ---
Nursing Progress Note: Problem: Pt admitted to [facility] on voluntary status. Grave Disability d/t depression, anxiety and memory issues. Reports she has not been eating at home. Med hx: CVA/TIA/Stroke, Dementia, High Cholesterol, Hypertension, Diabetes, Anxiety, Depression. Interventions: Maintained a safe and supportive environment, ensured contract for safety, provided clear and simple instructions, provided active listening and positive encouragement, encouraged participation on unit, monitored anxiety and provided redirection as needed, and maintained Q 15min safety checks. Response: Patient is pleasant and cooperative with care; compliant with medication. PRN Ativan provided for mild anxiety. She denied SI, HI, A/VH; no apparent delusions expressed. Patient isolated to her room, only came out to locate/return phone. She appeared to have a pleasant phone call prior to bed; some difficulty observed getting to sleep this shift. Plan: Pt. continues to require medication adjustments and a safe and supportive environment.
--- NOTE | 2023-05-23 05:38 | NUR ---
SHRIMP PEELING MACHINE TENDER documentation: I have reviewed and agree with all interventions, assessments performed and documented by Juju Garcia LVN.
[2023-05-23 07:00] VITALS: BP 150/85; PULSE 88; RESP 16; RESP 18; TEMP 97.3; O2SAT 95; O2SAT 96
[2023-05-23] MEDS: donepezil 5mg tablet PO SCH (07:57)
[2023-05-23] MEDS: metFORMIN 500mg tablet PO SCH ×2 (07:57→20:11)
[2023-05-23] MEDS: CITALOpram 10mg tablet PO SCH (07:58)
[2023-05-23] MEDS: busPIRone 5mg tablet PO SCH ×2 (07:58→20:11)
[2023-05-23] MEDS: lansoprazole 15mg solutab PO SCH (07:58)
[2023-05-23] MEDS: pioglitazone 15mg tablet PO SCH (07:59)
[2023-05-23] MEDS: atorvastatin 20mg tablet PO SCH (07:59)
[2023-05-23] MEDS: losartan 50mg tablet PO SCH (08:00)
--- NOTE | 2023-05-23 15:18 | NUR ---
Nursing Progress Note: [place] Problem: Pt admitted to [facility] at 1530 from ED fast track on voluntary status. Grave Disability d/t depression, anxiety and memory issues. Reports she has not been eating at home. Med hx: CVA/TIA/Stroke, Dementia, High Cholesterol, Hypertension, Diabetes, Anxiety, Depression. Interventions: Medication administration, Monitor patient behavior, Reinforce reality, Q15 minutes checks. Response: Pt. received asleep and awoke to take her medications without hesitation. Pt. denies SI, HI, AH, VH and reports feeling a little depressed She presents with good eye contact, cooperative, and forgetful at times. She ate her meals in the community room with cohorts and napped intermittently, often isolating in her room. Pt. approached this caption writer c/o all the noise this caption writer found the noise level moderate, as cohorts were out socializing and walking around the unit; ear plugs were offered. She was encouraged to shower today, but refused needing one at this time. Plan: Maintain safe environment and medication stabilization.
[2023-05-23 19:22] VITALS: BP 158/84; PULSE 85; RESP 16; TEMP 97.6; O2SAT 97
[2023-05-23] MEDS: cloNIDine 0.1 mg tablet PO PRN (20:11)
--- NOTE | 2023-05-23 22:37 | NUR ---
Nursing Progress Note: Problem: Pt admitted to [facility] on voluntary status. Grave Disability d/t depression, anxiety and memory issues. Reports she has not been eating at home. Med hx: CVA/TIA/Stroke, Dementia, High Cholesterol, Hypertension, Diabetes, Anxiety, Depression. Interventions: Maintained a safe and supportive environment, ensured contract for safety, provided clear and simple instructions, provided active listening and positive encouragement, encouraged participation on unit, and maintained Q 15min safety checks. Response: Patient is pleasant and cooperative with care; compliant with medication. PRN Clonidine provided for increased BP. She denied SI, HI, A/VH; no apparent delusions expressed. Patient continues to isolate to her room; observed talking on the phone prior to bed. Plan: Pt. continues to require medication adjustments and a safe and supportive environment.
[2023-05-24 07:00] VITALS: RESP 16; O2SAT 95
[2023-05-24 07:53] VITALS: BP_SYST 172
[2023-05-24] MEDS: CITALOpram 10mg tablet PO SCH (07:53)
[2023-05-24] MEDS: losartan 50mg tablet PO SCH (07:53)
[2023-05-24] MEDS: donepezil 5mg tablet PO SCH (07:53)
[2023-05-24] MEDS: pioglitazone 15mg tablet PO SCH (07:54)
[2023-05-24] MEDS: busPIRone 5mg tablet PO SCH (07:54)
[2023-05-24] MEDS: lansoprazole 15mg solutab PO SCH (07:54)
[2023-05-24] MEDS: metFORMIN 500mg tablet PO SCH (07:54)
[2023-05-24 08:00] VITALS: PULSE 80; RESP 16; TEMP 97.6; O2SAT 97
[2023-05-24] MEDS: atorvastatin 20mg tablet PO SCH (08:00)
[2023-05-24] MEDS ORDERED: LOSA50TA64 PO (13:21)
[2023-05-24] MEDS ORDERED: BREX1TAB PO (13:21)
[2023-05-24] MEDS ORDERED: BUSP10TA10 PO (13:21)
[2023-05-24] MEDS ORDERED: PANT40TA54 PO (13:21)
[2023-05-24] MEDS ORDERED: CITA-311 PO (13:24)
[2023-05-24] MEDS ORDERED: CITA20TA28 PO (13:26)
--- NOTE | 2023-05-24 15:16 | NUR ---
Pt. signed all DC paperwork and copies were placed in chart. All personal belongings were accounted for and home meds were p/u from in house pharmacy and received by pt. as well. Pt. has a f/u on 05/27/23 @[address] Watson. She ambulated off the unit issue and was escorted to [facility] at 1452. Addendum: 05/24/23 at 1517 by Nichelle Sam LVN Discharge Note:
== END 2023-05-24 14:52 | disposition home or self-care (01) | DRG 885 ==
LOC: ER 09:26 → ADULT MH 15:00
PROVIDERS: ADMIT Psychiatry & Neurology Psychiatry; ATTEND Psychiatry & Neurology Psychiatry
DX: F33.9 Major depressive disorder, recurrent, unspecified (principal); N39.0 Urinary tract infection, site not specified; B96.1 Klebsiella pneumoniae [K. pneumoniae] as the cause of diseases classified elsewhere; E11.9 Type 2 diabetes mellitus without complications; E78.00 Pure hypercholesterolemia, unspecified; E83.42 Hypomagnesemia; E87.6 Hypokalemia; F03.90 Unspecified dementia, unspecified severity, without behavioral disturbance, psychotic disturbance, mood disturbance, and anxiety; G43.909 Migraine, unspecified, not intractable, without status migrainosus; Z20.822 Contact with and (suspected) exposure to COVID-19; I10 Essential (primary) hypertension; F41.9 Anxiety disorder, unspecified; B96.20 Unspecified Escherichia coli [E. coli] as the cause of diseases classified elsewhere; K21.9 Gastro-esophageal reflux disease without esophagitis; Z79.84 Long term (current) use of oral hypoglycemic drugs; Z81.8 Family history of other mental and behavioral disorders; Z82.49 Family history of ischemic heart disease and other diseases of the circulatory system; Z90.711 Acquired absence of uterus with remaining cervical stump; Z91.148 Patient's other noncompliance with medication regimen for other reason
CPT/HCPCS: 36415; 70544; 70551; 80053; 80061; 80305; 80320; 81001; 81003; 82948; 83036; 83735; 84132; 85025; 87077; 87081; 87088; 87186; 87811; 99285; J3475